=== PATIENT | female | born 1945 | race Native Hawaiian/Other Pacific Islander ===

== ENCOUNTER 2020-07-01 09:05 | Outpatient (CLI) | payer MEDICARE, SELFPAY ==
--- NOTE | ~2020-07-01 | MM_ITS ---
EXAMINATION: MM screening [facility] BI w ninoska HISTORY: Screening TECHNIQUE: Craniocaudal and mediolateral oblique 3-D tomosynthesis images were obtained and synthetic 2-D images were generated. CAD analysis was submitted and interpreted. COMPARISON: Comparison to multiple prior studies sequentially, with oldest reviewed study dated 09/2016. BREAST PARENCHYMAL COMPOSITION: There are scattered areas of fibroglandular density. FINDINGS: There is no evidence of suspicious mass, calcification, or architectural distortion to sugg est malignancy in either breast. There has been no suspicious interval change. IMPRESSION: 1. No mammographic evidence of malignancy. 2. Recommend routine screening mammography in one year. BI-RADS Category 1: Negative Reviewed, dictated and finalized at location A.
== END 2020-07-01 09:06 | disposition home or self-care (01) ==
LOC: ANHIMG 09:08
PROVIDERS: PCP Internal Medicine; Visit Provider Internal Medicine
DX: Z12.31 Encounter for screening mammogram for malignant neoplasm of breast (principal)
CPT/HCPCS: 77063; 77067

== ENCOUNTER → 2020-08-21 10:58 | Outpatient (CLI) | payer MEDICARE, SELFPAY ==
--- NOTE | ~2020-08-21 | XR_ITS ---
EXAMINATION: XR_CERV2-3V_CR EXAM DATE: 08/21/2020 11:46 INDICATION: Cervical pain since 2011, progressing. TECHNIQUE: Cervical spine frontal, lateral, lateral swimmers, and open-mouth odontoid projections. There is no prior study for comparison. FINDINGS: Mild loss of the C4-5 and 5-6 disc spaces. There is 2 mm retrolisthesis C4 on C5. The vert ebral bodies are otherwise aligned. Overall mild to moderate cervical arthropathy. The odontoid proce ss is intact. The lateral masses of C1 line up with C2. Prevertebral soft tissue and pre-dens space are within normal limits. Lung apices are clear. IMPRESSION: Mild to moderate cervical spondylosis. Reviewed, dictated and finalized at location B.
== END ==
PROVIDERS: PCP Internal Medicine; Visit Provider Internal Medicine
DX: M47.812 Spondylosis without myelopathy or radiculopathy, cervical region (principal)
CPT/HCPCS: 72040

== ENCOUNTER → 2020-08-24 01:00 | Outpatient (CLI) | payer MEDICARE, SELFPAY ==
[2020-08-24 19:37] LABS: SARS-CoV-2 RNA PCR Negative
== END ==
PROVIDERS: PCP Internal Medicine; Visit Provider Internal Medicine Gastroenterology
DX: Z01.812 Encounter for preprocedural laboratory examination (principal); Z20.822 Contact with and (suspected) exposure to COVID-19
CPT/HCPCS: C9803; U0003; U0005

== ENCOUNTER 2020-08-28 01:09 | Day surgery (SDC) | payer MEDICARE, SELFPAY ==
[2020-08-16 13:40] VITALS: BMI 26.2
[2020-08-28 09:08] VITALS: BP 149/60; PULSE 66; RESP 18; TEMP 36.4; O2SAT 100
[2020-08-28] MEDS: LACTATED RINGERS 1,000 ML 150 ML IV CONT (09:21)
--- NOTE | 2020-08-28 09:34 | WPDANESEPPF ---
Anes - Initial Pre Proc Eval Procedure: Operation Date: 08/28/20 10:00 Proposed Procedures p Screening Colonoscopy - Valentino Troncoso MD Date/Time: 08/28/20 09:34 Surgeon: Valentino Troncoso MD Pre Op Diagnosis: hx colon polyps Patient Data Age: 75 Gender: F Height: 5 ft 3 in Weight: 65.7 kg Last Vital Signs Temp 97.6 F 08/28/20 09:08 Pulse 66 08/28/20 09:08 Resp 18 08/28/20 09:08 BP 149/60 H 08/28/20 09:08 Pulse Ox 100 08/28/20 09:08 Allergies Allergy/AdvReac Type Severity Reaction Status Date / Time Penicillins Allergy Severe Itching Verified 08/28/20 09:22 Home Medications Medication Instructions Recorded Confirmed Type cetirizine 10 mg tablet 5 mg PO DAILY 12/18/19 08/21/20 History conjugated estrogens 0.625 mg/gram 0.625 mg VAGINAL DAILY 12/18/19 08/28/20 History vaginal cream pravastatin 40 mg tablet 40 mg PO DAILY 12/18/19 08/21/20 History fluticasone propionate 50 1 spray NASAL DAILY #16 g 05/03/20 08/21/20 Rx mcg/actuation nasal spray,suspension hydrocortisone 2.5 % topical cream 1 applic RECTAL DAILY PRN #30 g 05/03/20 08/21/20 Rx with perineal applicator valacyclovir 500 mg tablet 500 mg PO DAILY PRN tablet 06/13/20 08/28/20 History levothyroxine 50 mcg tablet 50 mcg PO DAILY 06/28/20 08/21/20 History recta smooth 1 dose TOPICAL DAILY 08/09/20 08/28/20 History triamcinolone acetonide [Triderm] 1 applic TOPICAL DAILY 08/16/20 08/28/20 History Patient hx anesthesia problems: none Family hx anesthesia problems: none PMFSH Past Medical History Medical History (Updated 08/28/20 @ 09:34 by Jose C Marte MD) Bladder prolapse Reconstructive surgery 2015 HSV-2 (herpes simplex virus 2) infection Hypothyroid Vaginal delivery 10/07/72 Full term female 7lbs 2oz 11/29/74 Full term male 7lbs 4oz 04/07/82 Full term male 7lbs 3oz Surgical History Surgical History History of bladder surgery Family History Family History Father Cerebrovascular accident Social History Social History Smoking status: Never smoker Second hand tobacco smoke exposure: No Alcohol intake: never Substance use: never Substance use type: does not use Living arrangements: alone Gender identity (if verbalized by the patient): Female Sexual Orientation (if Verbalized by the Patient): Straight or Heterosexual Spiritual care concerns: No Anes - Eval Final PreProcedure Day of Procedure 08/28/20 09:34 Patient weight: overweight Heart: regular rate and rhythm Lungs: clear to auscultation Airway: Mallampati scale class II Neurological: alert and oriented Last oral intake: >/= 8 hours ASA classification: II Emergent: no Anesthetic plan: proceed Anesthesia type and monitoring: general GIVS and standard monitoring Informed Consent: The patient's anesthetic plan and its attendant risks and benefits were discussed with the patient/family/POA. Questions were solicited and answers provided to the satisfaction of the patient/family/POA.
--- NOTE | 2020-08-28 09:35 | PM.HPGS ---
History of Present Illness History of Present Illness Consent: Risks, benefits, and alternatives have been discussed and questions answered. Patient agrees to proceed with procedure. Chief complaint: hx colon polyps Narrative: Sloane Rosa is a 75 year old female with last colonoscopy 2016 but previously had colon polyps Review of Systems Constitutional: Constitutional: Denies headache(s) and Denies weakness Eyes: Eyes: Denies blurry vision ENT: Reports Normal hearing present, Denies headache(s) and Denies neck pain Cardiovascular: Cardiovascular: Denies chest pain and Denies dyspnea Respiratory: Respiratory: Denies dyspnea Gastrointestinal: Gastrointestinal: Reports no additional gastrointestinal complaints Genitourinary: Genitourinary: Denies dysuria Musculoskeletal: Musculoskeletal: Denies neck pain Integumentary/Breasts: Skin/Breast: Denies dry skin Neurologic: Reports Normal hearing present, Denies headache(s) and Denies weakness Psychiatric: Psychiatric: Denies anxiety Endocrine: Endocrine: Denies change in body appearance Hematologic/Lymphatic: Hematologic/Lymphatic: Denies easy bleeding Allergic/Immunologic: Allergic/Immunologic: Denies urticaria PMFSH Past Medical History Medical History (Updated 08/28/20 @ 09:36 by Valentino Troncoso MD) Bladder prolapse Reconstructive surgery 2016 Colon polyp HSV-2 (herpes simplex virus 2) infection Hypothyroid Vaginal delivery 10/07/72 Full term female 7lbs 2oz 11/29/74 Full term male 7lbs 4oz 04/07/82 Full term male 7lbs 3oz Surgical History Surgical History History of bladder surgery Family History Family History Father Cerebrovascular accident Social History Social History Smoking status: Never smoker Second hand tobacco smoke exposure: No Alcohol intake: never Substance use: never Substance use type: does not use Living arrangements: alone Gender identity (if verbalized by the patient): Female Sexual Orientation (if Verbalized by the Patient): Straight or Heterosexual Spiritual care concerns: No Meds Home Medications and Allergies Home Medications Medication Instructions Recorded Confirmed Type cetirizine 10 mg tablet 5 mg PO DAILY 12/18/19 08/21/20 History conjugated estrogens 0.625 mg/gram 0.625 mg VAGINAL DAILY 12/18/19 08/28/20 History vaginal cream pravastatin 40 mg tablet 40 mg PO DAILY 12/18/19 08/21/20 History fluticasone propionate 50 1 spray NASAL DAILY #16 g 05/03/20 08/21/20 Rx mcg/actuation nasal spray,suspension hydrocortisone 2.5 % topical cream 1 applic RECTAL DAILY PRN #30 g 05/03/20 08/21/20 Rx with perineal applicator valacyclovir 500 mg tablet 500 mg PO DAILY PRN tablet 06/13/20 08/28/20 History levothyroxine 50 mcg tablet 50 mcg PO DAILY 06/28/20 08/21/20 History recta smooth 1 dose TOPICAL DAILY 08/09/20 08/28/20 History triamcinolone acetonide [Triderm] 1 applic TOPICAL DAILY 08/16/20 08/28/20 History Allergies Allergy/AdvReac Type Severity Reaction Status Date / Time Penicillins Allergy Severe Itching Verified 08/28/20 09:22 Vital Signs Vital Signs - 24 hr 08/28/20 09:08 Temperature 97.6 F Pulse Rate 66 Respiratory Rate 18 Blood Pressure 149/60 H Pulse Oximetry 100 Exam Const: General: comfortable and no acute distress HENMT: General nose exam: Normal nares present Eyes: General: appearance normal, both eyes and all related structures Neck: Neck: no JVD Resp: Auscultation: clear to auscultation bilaterally Cardio: Rate: regular rate Rhythm: regular rhythm GI: Inspection: non-distended GI Palp: Yes Soft to palpation Skin: General skin exam: normal color Neuro: General: gait normal Speech: normal speech Extrem: General: normal to inspection Psych:
[2020-08-28 09:59] VITALS: BP 99/52; PULSE 60; RESP 21; O2SAT 99
[2020-08-28 10:09] VITALS: BP 153/74; PULSE 66; RESP 17; O2SAT 100
[2020-08-28 10:19] VITALS: BP 136/65; PULSE 59; RESP 23; O2SAT 100
== END 2020-08-28 10:36 | disposition home or self-care (01) ==
PROVIDERS: PCP Internal Medicine; Visit Provider Internal Medicine Gastroenterology
PROC: 0DJD8ZZ Inspection of Lower Intestinal Tract, Via Natural or Artificial Opening Endoscopic (ICD-10-PCS; CPT 45378; principal; 2020-08-28 10:00)
DX: Z12.11 Encounter for screening for malignant neoplasm of colon (principal); K63.5 Polyp of colon; K63.89 Other specified diseases of intestine; K57.30 Diverticulosis of large intestine without perforation or abscess without bleeding; K64.8 Other hemorrhoids; E03.9 Hypothyroidism, unspecified; B00.9 Herpesviral infection, unspecified
CPT/HCPCS: 45380; 88305; C9803; J2001; J2704; J7120; U0003; U0005

== ENCOUNTER 2020-08-30 09:26 | Outpatient (CLI) | payer MEDICARE, SELFPAY ==
--- NOTE | ~2020-08-30 | US_ITS ---
EXAMINATION: US carotid duplex BI DATE: 08/30/2020 09:59 INDICATION: Vertebrobasilar artery syndrome. TECHNIQUE: Grayscale, color Doppler, and pulsed Doppler images of the cervical carotid arteries were obtained. The degree of vessel stenosis is placed in one of the following categories: normal, <50%, 5 0-69%, >=70% but less than near-occlusion, near-occlusion, or total occlusion. Note that percent sten osis relative to normal distal artery lumen diameter is indirectly measured from velocity measurement s as described by Jewel, et al. Radiology 2003; 229:340-346. COMPARISON: None. FINDINGS: RIGHT: The right common carotid artery (CCA) peak systolic velocity (PSV) is 108 cm/s. The right internal ca rotid artery (ICA) PSV is 132 cm/s. The right ICA end-diastolic velocity (EDV) is 40 cm/s. The right ICA/CCA PSV ratio is 1.2. Grayscale and color Doppler images yield an estimate of <50% diameter reduc tion from plaque in the ICA. There is antegrade flow in the right vertebral artery. LEFT: The left CCA PSV is 122 cm/s. The left ICA PSV is 122 cm/s. The left ICA EDV is 22 cm/s. The left ICA /CCA PSV ratio is 1.0. Grayscale and color Doppler images yield an estimate of <50% diameter reductio n from plaque in the ICA. There is antegrade flow in the left vertebral artery. IMPRESSION: 1. <50% stenosis in the right internal carotid artery. 2. <50% stenosis in the left internal carotid artery. Reviewed, dictated and finalized at location A.
== END 2020-08-30 09:27 | disposition home or self-care (01) ==
PROVIDERS: PCP Internal Medicine; Visit Provider Internal Medicine
DX: G45.0 Vertebro-basilar artery syndrome (principal); I65.23 Occlusion and stenosis of bilateral carotid arteries
CPT/HCPCS: 93880

== ENCOUNTER 2021-01-22 15:29 | Outpatient (CLI) | payer MEDICARE, SELFPAY ==
--- NOTE | ~2021-01-22 | CT_ITS ---
EXAMINATION: CTA brain carotid EXAM DATE: 01/22/2021 16:16 INDICATION: H54.7 - Unspecified visual loss TECHNIQUE: Noncontrast head CT. Spiral CTA of the carotid arteries was performed with intravenous i njection 100 cc of Omnipaque 350. Axial, coronal, sagittal reformatted images reviewed. Additional r eformatted images created on dedicated 3-D workstation. NASCET comparable standard used to assess th e degree of arterial stenosis. Spiral CT angiogram cerebral arteries performed with the same intrave nous injection of contrast. Source images of the brain CTA transferred to dedicated workstation for 3 -D rotational image creation. Coronal, sagittal maximum intensity pixel images also reviewed. The d ose-length product (DLP) for this examination was 1518.42 mGy-cm. The exposure was tailored accordi ng to patient size, and iterative reconstruction (ASIR) was used as additional dose reduction techniq ue. Correlation is made to carotid ultrasound from 08/30/2020. FINDINGS: There is moderate right carotid bulb arteriosclerosis with 50% stenosis. There is minimal l eft carotid bulb arterial sclerosis. There are posterior communicating artery dominant posterior cer ebral arteries. The vertebral arteries are codominant. There is no carotid or vertebral basilar arter ial dissection or fibromuscular dysplasia. There are no cerebral artery aneurysms. There is symmetric cerebral artery arborization. The sagittal, transverse and sigmoid sinuses enhance normally, no veno us sinus thrombosis. Internal cerebral veins also enhance normally. There is no acute intraparenchymal hemorrhage. No evidence of intraparenchymal brain mass lesion. N o evidence of acute infarction. There is no mass effect or midline shift. There is no obstructive hyd rocephalus suspected. There are no extra-axial collections. Incidental Findings: Advanced upper cervical facet arthropathy. IMPRESSION: 1. No acute carotid or intracranial findings. 2. Right carotid bulb 50% stenosis, 0% on the left. Reviewed, dictated and finalized at location A.
== END 2021-01-22 15:30 | disposition home or self-care (01) ==
LOC: ANHIMG 15:33
PROVIDERS: PCP Internal Medicine; Visit Provider Nurse Practitioner
DX: H54.7 Unspecified visual loss (principal); I65.21 Occlusion and stenosis of right carotid artery
CPT/HCPCS: 70496; 70498; Q9967

== ENCOUNTER → 2021-05-10 00:06 | Outpatient (CLI) | payer MEDICARE, SELFPAY ==
[2021-05-10 13:57] LABS: Influenza A QL RT-PCR Negative (Negative); Influenza B QL RT-PCR Negative (Negative); SARS-CoV-2 RNA PCR Negative
== END ==
PROVIDERS: PCP Internal Medicine; Visit Provider Internal Medicine
DX: R68.89 Other general symptoms and signs (principal); Z20.822 Contact with and (suspected) exposure to COVID-19
CPT/HCPCS: 87502; C9803; U0003; U0005

== ENCOUNTER → 2021-05-16 15:13 | Outpatient (CLI) | payer MEDICARE, SELFPAY ==
--- NOTE | ~2021-05-16 | XR_ITS ---
XR shoulder RT min 2V 05/16/2021 15:41 INDICATION: Right shoulder pain PROCEDURE: 4 views right shoulder COMPARISON: No prior studies FINDINGS: Fracture, dislocation or subluxation is not identified. There is mild polyarticular osteoar thritis. The soft tissues appear within normal limits. No foreign bodies are identified. IMPRESSION: 1: NO ACUTE BONE OR JOINT ABNORMALITY IDENTIFIED. Reviewed, dictated and finalized at location B. RINTENDENT PIPELINES
== END ==
PROVIDERS: Visit Provider Internal Medicine
DX: M25.519 Pain in unspecified shoulder (principal)
CPT/HCPCS: 73030

== ENCOUNTER 2021-05-28 14:03 | Outpatient (CLI) | payer MEDICARE, SELFPAY ==
--- NOTE | ~2021-05-28 | US_ITS ---
EXAMINATION: US arterial ankle brachial ind DATE: 05/28/2021 14:34 INDICATION: Cold and discolored feet. TECHNIQUE: Segmental pressures and plethysmographic and Doppler waveforms of the brachial and lower e xtremity arteries were obtained. COMPARISON: None. FINDINGS: Right and left brachial artery pressures of 136 mm Hg and 129 mm Hg, respectively, are concordant (no rmal difference <= 30 mmHg). The right ankle-brachial index (EVERT) is 1.13 (normal >= 0.9-1.0). The right great toe-brachial index (TBI) is 0.60 (normal >= 0.65). Arterial Doppler waveforms are biphasic with brisk systolic upstrokes at both the right posterior tibial and dorsalis pedis arteries. The left EVERT is 1.02. The left TBI is 0.60. Arterial Doppler waveforms are biphasic with brisk systol ic upstrokes at both the left posterior tibial and dorsalis pedis arteries. IMPRESSION: 1. Mild arterial occlusive disease to the bilateral lower limbs with mildly decreased bilateral TBIs. Reviewed, dictated and finalized at location A. ING SUPPORT WORKER IMPRESSION: 1. Mild arterial occlusive disease to the bilateral lower limbs with mildly dec reased bilateral TBIs.
== END 2021-05-28 14:04 | disposition home or self-care (01) ==
LOC: ANHIMG 14:07
PROVIDERS: Visit Provider Nurse Practitioner
DX: R20.9 Unspecified disturbances of skin sensation (principal); I73.00 Raynaud's syndrome without gangrene; I70.203 Unspecified atherosclerosis of native arteries of extremities, bilateral legs
CPT/HCPCS: 93922

== ENCOUNTER 2021-07-03 09:22 | Outpatient (CLI) | payer MEDICARE, SELFPAY ==
--- NOTE | ~2021-07-03 | MM_ITS ---
EXAMINATION: MM screening [facility] BI w ninoska HISTORY: Screening TECHNIQUE: Craniocaudal and mediolateral oblique 3-D tomosynthesis images were obtained and synthetic 2-D images were generated. CAD analysis was submitted and interpreted. COMPARISON: Comparison to multiple prior studies sequentially, with oldest reviewed study dated 09/2016. BREAST PARENCHYMAL COMPOSITION: Breast composed of scattered areas of fibroglandular density FINDINGS: There are developing calcifications in the upper outer quadrant of the right breast. The le ft breast is stable without evidence for malignancy. IMPRESSION: 1. Developing right breast calcifications in the upper outer quadrant. 2. Magnification views are recommended. BI-RADS Category 0: Incomplete: Needs additional imaging evaluation. Reviewed, dictated and finalized at location A.
== END 2021-07-03 09:23 | disposition home or self-care (01) ==
LOC: ANHIMG 09:24
PROVIDERS: PCP Internal Medicine; Visit Provider Nurse Practitioner
DX: Z12.31 Encounter for screening mammogram for malignant neoplasm of breast (principal); R92.8 Other abnormal and inconclusive findings on diagnostic imaging of breast
CPT/HCPCS: 77063; 77067

== ENCOUNTER → 2021-07-14 09:14 | Outpatient (CLI) | payer MEDICARE, SELFPAY ==
--- NOTE | ~2021-07-14 | MM_ITS ---
MM diagnostic mammo unilat RT 07/14/2021 09:52 Indication: Follow-up right breast calcifications Procedure: Digital diagnostic right mammogram Comparison: Comparison to multiple prior studies sequentially, with oldest reviewed study dated 06/04. Findings: There are scattered punctate calcifications in the upper outer quadrant of the right breast which are likely benign. There are no suspicious masses or architectural distortion. Impression: 1: Probable benign right breast calcifications. BI-RADS CATEGORY 3-PROBABLY BENIGN FINDING RECOMMENDATION: Six-month follow-up diagnostic right mammogram recommended. Reviewed, dictated and finalized at location A. Impression: 1: Probable benign right breast calcifications. BI-RADS CATEGORY 3-PROBABLY BENIGN FINDING RECOMMENDATION: Six-month follow-up diagnostic right mammogram recommended.
== END ==
PROVIDERS: PCP Nurse Practitioner; Visit Provider Nurse Practitioner
DX: R92.8 Other abnormal and inconclusive findings on diagnostic imaging of breast (principal)
CPT/HCPCS: 77065

== ENCOUNTER → 2021-07-30 10:13 | Outpatient (CLI) | payer MEDICARE, SELFPAY ==
--- NOTE | ~2021-07-30 | DEXA_ITS ---
Bone Density Report Name: KURTIS LUND Age: 76 Sex: Female Ethnicity: Date of : 1945 Indication: postmenopausal; screening for osteoporosis; height loss; Referring Provider: Salma Camacho Study: Bone densitometry was performed. Exam Date: July 30, 2021 Accession number: [id number] Bone Density: Region BMD T-score Z-score Classification AP Spine (L1-L4) 1.059 0.1 2.5 Normal Femoral Neck (Left) 0.799 -0.5 1.4 Normal Total Hip (Left) 0.936 0.0 1.6 Normal Femoral Neck (Right) 0.826 -0.2 1.6 Normal Total Hip (Right) 0.887 -0.5 1.2 Normal Total Hip Mean 0.912 -0.3 1.4 Normal World Health Organization criteria for BMD impression classify patients as: Normal (T-score at or above -1.0), Osteopenia (T-score between -1.0 and -2.5), or Osteoporosis (T-score at or below -2.5). 10-year Fracture Risk: FRAX not reported because: All T-scores for Spine Total, Hip Total, Femoral Neck at or above -1.0 Previous Exams: Region Exam Age BMD T-score BMD Change BMD Change Date g/cm2 vs Baseline vs Previous AP Spine(L1-L4) 07/30/2021 76 1.059 0.1 -0.057* -0.057* 12/14/2016 71 1.115 0.6 Total Hip(Left) 07/30/2021 76 0.936 0.0 -0.003 -0.003 12/14/2016 71 0.939 0.0 Total Hip(Right) 07/30/2021 76 0.887 -0.5 -0.003 -0.003 12/14/2016 71 0.890 -0.4 *Denotes significance at 95% confidence level, LSC for AP Spine = 0.022 g/cm2, LSC for Total Hip = 0.027 g/cm2 Clinical Information Provided by Patient: Has used the following medications: Vitamin D, MTV, Levothyroxine Patient maximum height was 63.0 Menopause Age: 42 Drinks caffeinated beverages Onset of menses at age 14 Number of children 3 Impression: The patient has normal bone mass. The BMD for the AP Spine(L1-L4) decreased, changing by -0.057 since the last DXA exam. Discussion: BONE DENSITY IS ABOVE THE MINIMUM DESIRABLE LEVEL AT ALL SKELETAL SITES TESTED. This patient?s bone mineral density is above the minimum desirable level (T-score -1.0 or better) at all sites measured. The patient should follow a healthful lifestyle (good nutrition with adequate calcium and vitamin D, and appropriate weight-bearing exercise). Follow-Up: Consider repeating this study in 3 to 4 years to reassess this patient's status, or sooner if there is some new clinical indication. Reported by: KELLIE on 07/30/2021 10:49:00 AM.
== END ==
PROVIDERS: PCP Internal Medicine; Visit Provider Nurse Practitioner
DX: Z78.0 Asymptomatic menopausal state (principal)
CPT/HCPCS: 77080

== ENCOUNTER 2022-01-23 10:35 | Outpatient (CLI) | payer MEDICARE, SELFPAY ==
--- NOTE | 2022-01-27 16:08 | WPDHOLTEREM ---
Holter/Event Monitor Holter/Event Monitor Date of procedure: 01/23/22 Holter/Event Procedure: 48 Hr Holter Monitor Indications: Syncope Conclusion: 1. 48 hour holter monitor on 01/23/22. 2. Underlying rhythm is sinus rhythm. HR range 38-102 bpm; average HR 61 bpm. HR at 38 bpm was at 03:50. 3. There are 196 premature supraventricular complexes, 5 supraventricular couplets, and 3 supraventricular bigeminy. No supraventricular tachycardia. 4. There are 8 premature ventricular complexes. No ventricular tachycardia. 5. No sinoatrial or atrioventricular blocks. The longest pause is 2.2 second pause at 02:10 due to a non-conducted PAC. There are intermittent episodes of non-conducted PAC's at 16:04, 16:29, 16:49, 23:20, 02:10, 03:50, 05:32 6. Patient reports symptoms of dizziness and neck pain which demonstrate sinus rhythm, HR range 60-81 bpm.
== END 2022-01-23 10:36 | disposition home or self-care (01) ==
PROVIDERS: PCP Internal Medicine; Visit Provider Nurse Practitioner
DX: R55 Syncope and collapse (principal)
CPT/HCPCS: 93225; 93226

== ENCOUNTER → 2022-01-27 08:48 | Outpatient (CLI) | payer MEDICARE, SELFPAY ==
--- NOTE | ~2022-01-27 | MMUS_ITS ---
EXAMINATION: MM diagnostic rneetta RT w ninoska, US breast RT limited HISTORY: Six-month follow-up of probable benign right breast calcifications TECHNIQUE: ML, MLO and craniocaudal 3-D tomosynthesis images of the right breast were performed and s ynthetic 2-D images were generated. Rotated lateral craniocaudal view. Magnification views in ML, MLO and CC projections. CAD analysis was submitted and interpreted. High resolution upper outer and lowe r-outer quadrant right breast ultrasound was performed. COMPARISON: 07/14/2021 diagnostic right mammogram 07/03/2021, 07/01/2020, 06/23/2018 bilateral screening mammogram examinations BREAST PARENCHYMAL COMPOSITION: There are scattered areas of fibroglandular density. FINDINGS: MAMMOGRAPHIC FINDINGS: There are occasional benign calcifications. No suspicious mass, architectural distortion, malignant c alcification, skin thickening or retraction or significant new or developing density of the right morris ast is detected. ULTRASOUND: Real-time imaging of upper outer and lower-outer quadrants right breast reveal no suspicious mass or shadowing, cyst or other significant sonographic finding. IMPRESSION: 1. Benign right calcifications. No mammographic evidence of malignancy 2. Routine annual mammographic screening is recommended BI-RADS Category 2: Benign finding(s). Reviewed, dictated and finalized at location A. N RESOURCE ADVISER IMPRESSION: 1. Benign right calcifications. No mammographic evidence of malignancy 2. Routine annual mammographic screening is recommended BI-RADS Category 2: Benign finding(s).
== END ==
PROVIDERS: PCP Nurse Practitioner; Visit Provider Internal Medicine
DX: R92.1 Mammographic calcification found on diagnostic imaging of breast (principal)
CPT/HCPCS: 76642; 77061; 77065; G0279

== ENCOUNTER → 2022-11-24 14:50 | Outpatient (CLI) | payer MEDICARE, SELFPAY ==
--- NOTE | ~2022-11-24 | XR_ITS ---
EXAMINATION: XR abdomen/kub 1V INDICATION: Unspecified abdominal pain TECHNIQUE: Supine views of the abdomen were obtained on 2 radiographs. COMPARISON: None FINDINGS: The bowel gas pattern is normal. A moderate volume of colonic stool is present. A left pelv ic calcification likely reflects a uterine fibroid. The visualized lung bases are clear. No urolithia sis is identified. IMPRESSION: 1. Constipation Reviewed, dictated and finalized at location B. IMPRESSION: 1. Constipation
--- NOTE | ~2022-11-24 | XR_ITS ---
EXAMINATION: XR foot RT min 3V DATE: 11/24/2022 16:03 INDICATION: Right foot pain TECHNIQUE: Dorsoplantar, lateral, and 2 oblique views of the right foot were obtained. COMPARISON: None. FINDINGS: Bone alignment is normal. There is no fracture. There is mild to moderate osteoarthritis of multiple interphalangeal joints. Mild osteoarthritis is noted at the first metatarsophalangeal joint . The soft tissues are unremarkable. A plantar calcaneal enthesophyte is noted. IMPRESSION: 1. No acute osseous abnormality. Reviewed, dictated and finalized at location B.
== END ==
PROVIDERS: PCP Family Medicine; Visit Provider Family Medicine
DX: M79.676 Pain in unspecified toe(s) (principal); R10.9 Unspecified abdominal pain; K59.00 Constipation, unspecified
CPT/HCPCS: 73630; 74018

== ENCOUNTER → 2023-05-12 13:46 | Outpatient (CLI) | payer MEDICARE, SELFPAY ==
--- NOTE | ~2023-05-12 | XR_ITS ---
EXAMINATION: XR_CERV2-3V_CR DATE: 05/12/2023 14:06 INDICATION: Neck and bilateral shoulder pain. TECHNIQUE: 3 views of cervical spine were obtained. COMPARISON: Cervical spine radiograph 08/21/2020 FINDINGS: There is 4 degrees dextrocurvature of cervical spine. Vertebral body heights are normal. Th ere is mildly decreased disc height at C3-C4, C4-C5, and C5-C6. There is multilevel mild to moderate facet joint osteoarthritis. There is mild central canal stenosis at C4-C5. No prevertebral soft tissu e swelling. IMPRESSION: 1. Mild cervical spondylosis. Reviewed, dictated and finalized at location E. R ROLLER
--- NOTE | ~2023-05-12 | XR_ITS ---
EXAMINATION: XR shoulder LT min 2V, XR shoulder RT min 2V DATE: 05/12/2023 14:06 INDICATION: Bilateral shoulder pain and limited range of motion TECHNIQUE: 1. AP internally and externally rotated, AP oblique externally rotated and transscapular Y views of t he left shoulder were obtained. 2. AP internally and externally rotated, AP oblique externally rotated and transscapular Y views of t he left shoulder were obtained. COMPARISON: None FINDINGS: Normal alignment at both shoulders. No fracture.Mild osteoarthritis at the bilateral glenohumeral nel ints with mild nonuniform joint space narrowing at the cephalad aspect right glenohumeral joint and w ith small marginal osteophytes at the posterior left glenoid and at the inferomedial aspect of the bi lateral humeral heads. Mild acromioclavicular osteoarthritis. The left acromioclavicular joint is nor mal. Soft tissues are unremarkable. Visualized portion of the bilateral lungs are clear. 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 Reviewed, dictated and finalized at location A. 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
== END ==
PROVIDERS: PCP Family Medicine; Visit Provider Family Medicine
DX: M43.02 Spondylolysis, cervical region (principal); M19.012 Primary osteoarthritis, left shoulder; M19.011 Primary osteoarthritis, right shoulder
CPT/HCPCS: 72040; 73030

== ENCOUNTER 2023-07-28 11:55 | Outpatient (CLI) | payer MEDICARE, SELFPAY ==
--- NOTE | ~2023-07-28 | MM_ITS ---
EXAMINATION: MM screening renetta BI w ninoska HISTORY: Screening mammogram TECHNIQUE: Craniocaudal and mediolateral oblique 3-D tomosynthesis images were obtained and synthetic 2-D images were generated. CAD analysis was submitted and interpreted. COMPARISON: 01/27/2022 diagnostic the right mammogram and Limited right breast ultrasound For the slice diagnostic right mammogram 07/03/2021 bilateral screening mammogram BREAST PARENCHYMAL COMPOSITION: There are scattered areas of fibroglandular density. FINDINGS: Stable mild fibroglandular asymmetry. Occasional benign calcifications. There is no evidenc e of suspicious mass, calcification, or architectural distortion to suggest malignancy in either [address]. There has been no suspicious interval change. IMPRESSION: 1. No mammographic evidence of malignancy. 2. Recommend routine screening mammography in one year. BI-RADS Category 2: Benign finding(s). Reviewed, dictated and finalized at location B.
== END 2023-07-28 11:56 ==
LOC: MICIMG 11:56
PROVIDERS: PCP Family Medicine; Visit Provider Family Medicine
DX: Z12.31 Encounter for screening mammogram for malignant neoplasm of breast (principal)
CPT/HCPCS: 77063; 77067

== ENCOUNTER 2023-08-19 12:43 | Outpatient (CLI) | payer MEDICARE, SELFPAY ==
--- NOTE | ~2023-08-19 | MR_ITS ---
MRI of the cervical spine Clinical History: Cervicalgia Technique: Axial T2-weighted and gradient images, and sagittal T1-weighted, T2-weighted, and STIR les ges were acquired. Findings: There is no fracture or subluxation of cervical spine. Vertebral bodies maintain normal hei ght and alignment. No bone marrow signal abnormality seen. At C2-C3, there is minimal facet arthropathy without disc bulge or herniation. No spinal canal stenos is, cord compression, or neural foraminal narrowing. At C3-C4, there is bilateral facet arthropathy with probable mild bilateral neural foraminal narrowin g. No disc bulge or herniation. No canal stenosis or cord compression. At C4-C5, there is minimal disc osteophyte complex, without canal stenosis or cord compression. There is probable mild bilateral neural foraminal narrowing with mild bilateral facet arthropathy. At C5-C6, there is disc osteophyte complex, mild, without justo canal stenosis or cord compression. B ilateral neural foramina are preserved despite facet arthropathy. At C6-C7, there is no significant disc bulge or herniation. There is mild bilateral facet arthropathy . No central canal stenosis, cord compression, or neural foraminal narrowing. No abnormal signal seen in the spinal cord. Paravertebral soft tissues are unremarkable. Impression: Mild degenerative spondylosis overall, as detailed above. Reviewed, dictated and finalized at [facility]. Impression: Mild degenerative spondylosis overall, as detailed above.
== END 2023-08-19 12:44 ==
LOC: MICIMG 12:44
PROVIDERS: PCP Family Medicine; Visit Provider Family Medicine
DX: M54.2 Cervicalgia (principal); M43.02 Spondylolysis, cervical region
CPT/HCPCS: 72141

== ENCOUNTER 2024-07-31 12:24 | Outpatient (CLI) | payer MEDICARE, SELFPAY ==
--- NOTE | ~2024-07-31 | MM_ITS ---
EXAMINATION: MM screening [facility] BI w ninoska HISTORY: Screening mammogram TECHNIQUE: Craniocaudal and mediolateral oblique 3-D tomosynthesis images were obtained and synthetic 2-D images were generated. CAD analysis was submitted and interpreted. COMPARISON: 07/28/2023, 01/27/2022, 07/03/2021 BREAST PARENCHYMAL COMPOSITION:Not Dense. There are scattered areas of fibroglandular density. FINDINGS: No suspicious mass, calcification, or architectural distortion are identified in either morris ast to suggest malignancy. There has been no suspicious interval change. IMPRESSION: No mammographic evidence of malignancy. Recommend routine screening mammography in one year. BI-RADS Category 1: Negative Reviewed, dictated and finalized at location .
== END 2024-07-31 12:25 | disposition home or self-care (01) ==
LOC: MICIMG 12:25
PROVIDERS: PCP Family Medicine; Visit Provider Family Medicine
DX: Z12.31 Encounter for screening mammogram for malignant neoplasm of breast (principal)
CPT/HCPCS: 77063; 77067

== ENCOUNTER 2024-08-07 13:38 | Outpatient (CLI) | payer MEDICARE, SELFPAY ==
--- NOTE | ~2024-08-07 | DEXA_ITS ---
Bone Density Report Name: KURTIS LUND Age: 79 Sex: Female Ethnicity: Date of : 1945 Indication: postmenopausal; screening for osteoporosis; height loss; Referring Provider: DONAL ZIEGLER Study: Bone densitometry was performed. Exam Date: August 07, 2024 Accession number: [id number] Bone Density: Region BMD T-score Z-score Classification AP Spine(L1-L4) 1.129 0.7 3.3 Normal Femoral Neck (Left) 0.772 -0.7 1.3 Normal Total Hip (Left) 0.901 -0.3 1.5 Normal Femoral Neck (Right) 0.742 -1.0 1.0 Normal Total Hip (Right) 0.872 -0.6 1.2 Normal Total Hip Mean 0.887 -0.5 1.4 Normal World Health Organization criteria for BMD impression classify patients as: Normal (T-score at or above -1.0), Osteopenia (T-score between -1.0 and -2.5), or Osteoporosis (T-score at or below -2.5). 10-year Fracture Risk: FRAX not reported because: All T-scores for Spine Total, Hip Total, Femoral Neck at or above -1.0 Previous Exams: -- Region Exam Age BMD T-score BMD Change BMD Change Date g/cm2 vs Baseline vs Previous -- AP Spine (L1-L4) 08/07/2024 79 1.129 0.7 1.2% 6.6%* 07/30/2021 76 1.059 0.1 -5.1%* -5.1%* 12/14/2016 71 1.115 0.6 Total Hip(Left) 08/07/2024 79 0.901 -0.3 -4.1%* -3.7%* 07/30/2021 76 0.936 0.0 -0.4% -0.4% 12/14/2016 71 0.939 0.0 Total Hip(Right) 08/07/2024 79 0.872 -0.6 -2.1% -1.7% 07/30/2021 76 0.887 -0.5 -0.4% -0.4% 12/14/2016 71 0.890 -0.4 -- *Denotes significance at 95% confidence level, LSC for AP Spine = 0.022 g/cm2, LSC for Total Hip = 0.027 g/cm2 Clinical Information Provided by Patient: Has used the following medications: Vitamin D Patient maximum height was 63.0 Menopause Age: 42 Drinks caffeinated beverages Onset of menses at age 14 Number of children 3 Impression: The patient has normal bone mass. The BMD for the Total Hip(Left) decreased, changing by -3.7% since the last DXA exam. Discussion: BONE DENSITY IS ABOVE THE MINIMUM DESIRABLE LEVEL AT ALL SKELETAL SITES TESTED. This patient’s bone mineral density is above the minimum desirable level (T-score -1.0 or better) at all sites measured. The patient should follow a healthful lifestyle (good nutrition with adequate calcium and vitamin D, and appropriate weight-bearing exercise). Follow-Up: Consider repeating this study in 3 to 4 years to reassess this patient's status, or sooner if there is some new clinical indication. Reported by: KELLIE on 08/09/2024 8:58:00 AM. Reviewed, dictated and finalized at location A.
== END 2024-08-07 13:39 | disposition home or self-care (01) ==
LOC: MICIMG 13:39
PROVIDERS: PCP Family Medicine; Visit Provider Family Medicine
DX: Z78.0 Asymptomatic menopausal state (principal)
CPT/HCPCS: 77080

== ENCOUNTER 2024-11-17 11:19 | Outpatient (CLI) | payer MEDICARE, SELFPAY ==
--- OUTSIDE RECORDS SUMMARY | 2024-11-17 11:24 | XMS_ITS | Encounter Summary ---
Author Organization [facility] Address 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
--- OUTSIDE RECORDS SUMMARY | 2024-11-17 11:24 | XMS_ITS | Encounter Summary ---
Author Organization [facility] Address [address] [place] [address] Care Team Providers Care Unit Receptionist Name Role Phone Nury Alfredo MD Primary Care Provider [phone] Encounter Details Date Type Department Care Team (Latest Contact Info) Description 12/06/2004 Outpatient Historical [facility] [place] Steen, Mike Grewal MD [address] [facility] [address] [place] [address] SCREENING MAMM-MAILG NEOPL NEC (Primary Dx) Social History Tobacco Use Types Packs/Day Years Used Date Smoking Tobacco: Never Assessed Comments Unknown Sex and Gender Information Value Date Recorded Sex Assigned at Not on file 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
--- OUTSIDE RECORDS SUMMARY | 2024-11-17 11:24 | XMS_ITS | Encounter Summary ---
Author Organization [facility] Address [address] [place] [address] Care Team Providers Care Director Of Content Marketing Name Role Phone Nury Alfredo MD Primary Care Provider [phone] Encounter Details Date Type Department Care Team (Late st Contact Info) Description 02/04/2007 Outpatient Historical [facility] Albert Burks MD [address] [facility] [address] [place] [address] Special Screening for Malignant Neoplasms, Colon (Primary Dx) Social History Tobacco Use Types Packs/Day Years Used Date Smoking Tobacco: Never Assessed Comments Unknown Sex and Gender Information Value Date Recorded Sex Assigned at Not on file 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
--- OUTSIDE RECORDS SUMMARY | 2024-11-17 11:24 | XMS_ITS | Encounter Summary ---
Author Organization [facility] Address 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
--- OUTSIDE RECORDS SUMMARY | 2024-11-17 11:24 | XMS_ITS | Encounter Summary ---
Author Organization [facility] Address [address] [place] [address] Care Team Providers Care Commission For The Blind Director Name Role Phone Nury Alfredo MD Primary Care Provider [phone] Encounter Details Date Type Department Care Team (Late st Contact Info) Description 12/16/2006 Outpatient Historical [facility] [address] [place] [address] Nury Alfredo MD [address] [place] [address] [place] [address] Social History Tobacco Use Types Packs/Day Years Used Date Smoking Tobacco: Never Assessed Comments Unknown Sex and Gender Information Value Date Recorded Sex Assigned at Not on file 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
--- OUTSIDE RECORDS SUMMARY | 2024-11-17 11:24 | XMS_ITS | Encounter Summary ---
Author Organization [facility] Address [address] [place] [address] Care Team Providers Care Banking Services Clerk Name Role Phone Nury Alfredo MD Primary Care Provider [phone] Encounter Details Date Type Department Care Team (Late st Contact Info) Description 12/15/2006 Outpatient Historical [facility] PATIENT SERVICES MANAGER - Medical [facility] [address] [facility] [address] [place] [address] Mike Steen MD [address] [place] [address] Social History Tobacco Use Types Packs/Day Years Used Date Smoking Tobacco: Never Assessed Comments Unknown Sex and Gender Information Value Date Recorded Sex Assigned at Not on file Legal Sex Female 2:36 AM BENCH HAND Gender Identity Not on file Sexual Orientation Not on file documented as of this encounter Plan of Treatment Not on file documented as of this encounter Visit Diagnoses Not on filedocumented in this encounter Care Teams Banking Services Clerk Relationship Specialty Start Date End Date Nury Alfredo MD [address] [facility] [address] [place] [address] PCP - General 08/26/00 07/26/17 documented as of this encounter
--- OUTSIDE RECORDS SUMMARY | 2024-11-17 11:24 | XMS_ITS | Encounter Summary ---
Author Organization [facility] Address [address] [place] [address] Care Team Providers Care Real Estate Director Name Role Phone Nury Alfredo MD Primary Care Provider [phone] Encounter Details Date Type Department Care Team (Latest Contact Info) Description 12/18/2006 Outpatient Historical [facility] Nury Cabello, [address] [facility] [address] [place] [address] Other Abnormal Clinical Finding (Primary Dx) Social History Tobacco Use Types Packs/Day Years Used Date Smoking Tobacco: Never Assessed Comments Unknown Sex and Gender Information Value Date Recorded Sex Assigned at Not on file 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 Gender Identity Not on file Sexual Orientation Not on file documented as of this encounter Plan of Treatment Not on file documented as of this encounter Procedures Procedure Name Priority Date/Time Associated Diagnosis Comments CBC WITH DIFFERENTIAL Routine 12/18/2006 7:56 AM CDT CBC WITH DIFFERENTIAL Routine 12/18/2006 7:56 AM CDT LIPID PANEL Routine 12/18/2006 7:56 AM CDT COMPREHENSIVE METABOLIC PANEL Routine 12/18/2006 7:56 AM CDT documented in this encounter Results * CBC WITH DIFFERENTIAL (12/18/2006 7:56 AM CDT) NEUTROPHILS 50 45 - 70 % INTERFAC E SYSTEM LYMPHOCYTES 38 16 - 45 % INTERFAC E SYSTEM MONOCYTES 8 3 - 13 % INTERFACE SYSTEM EOSINOPHILS 4 0 - 7 % INTERFAC E SYSTEM BASOPHILS 1 0 - 2 % INTERFACE SYSTEM NEUTROPHIL ABSOLUTE 2.18 1.90 - 7.00 K/uL INTERFACE SYSTEM LYMPHOCYTE ABSOLUTE 1.66 0.70 - 4.50 K/uL INTERFACE SYSTEM MONOCYTE ABSOLUTE 0.34 0.10 - 1.30 K/uL INTERFACE SYSTEM EOSINOPHIL ABSOLUTE 0.19 0.00 - 0.70 K/uL INTERFACE SYSTEM BASOPHILS ABSOLUTE 0.04 0.00 - 0.20 K/uL INTERFACE SYSTEM 12/18/2006 7:56 AM CDT Nury Alfredo MD HEMATOLOGY ORDERABLES Edited INTERFACE SYSTEM Refer to clinic/hospital department * (ABNORMAL) CBC WITH DIFFERENTIAL (12/18/2006 7:56 AM CDT) WBC 4.4 4.0 - 9.8 K/uL INTERFACE SYSTEM RBC 4.77 3.90 - 4.90 M/uL INTERFACE SYSTEM HEMOGLOBIN 14.8 11.8 - 14.8 g/dL INTERFACE SYSTEM HEMATOCRIT 44.7(H) 35.5 - 44.0 % INTERFACE SYSTEM MCV 93.7 82.0 - 99.0 fL INTERFACE SYSTEM MCH 31.0 27.2 - 32.6 pg INTERFACE SYSTEM MCHC 33.1 31.5 - 35.5 % INTERFACE SYSTEM RDW 13.3 11.5 - 14.5 % INTERFACE SYSTEM RDW-STDEV 45.7 37.1 - 48.7 fL INTERFACE SYSTEM PLATELETS 345 140 - 350 K/uL INTERFACE SYSTEM MPV 9.8 9.3 - 12.4 fL INTERFACE SYSTEM 12/18/2006 7:56 AM CDT Nury Alfredo MD HEMATOLOGY ORDERABLES Edited INTERFACE SYSTEM Refer to clinic/hospital department * (ABNORMAL) LIPID PANEL (12/18/2006 7:56 AM CDT) CHOLESTEROL 244(H) 100 - 199 mg/dL INTERFACE SYSTEM TRIGLYCERIDE 116 10 - 149 mg/dL INTERFACE SYSTEM HDL 58 40 - 59 mg/dL INTERFACE SYSTEM CHOL/HDL RATIO 4.2 2.0 - 5.0 INTER FACE SYSTEM LDL CALCULATED 163(H) <=99 mg/dL INTERFACE SYSTEM LIPID PANEL COMMENT See Below INTERFACE SYSTEM Comment: The adult ATP and pediatric NCEP classifications for lipids are available on the [facility] at: [email or web address] Select: Lab Policies and Procedures,Current Select: Lipid Panel Interpretation 12/18/2006 7:56 AM CDT Nury Alfredo MD CHEMISTRY ORDERABLES Edited INTERFACE SYSTEM Refer to clinic/hospital department * (ABNORMAL) COMPREHENSIVE METABOLIC PANEL (12/18/2006 7:56 AM CDT) GLUCOSE 100(H) 65 - 99 mg/dL INTERFACE SYSTEM CREATININE 0.60 0.51 - 0.95 mg/dL INTERFACE SYSTEM CALCIUM 9.5 8.4 - 10.2 mg/dL INTERFACE SYSTEM ALKALINE PHOSPHATASE 76 35 - 104 U/L INTERFACE SYSTEM AST 23 12 - 32 U/L INTERFACE SYSTEM ALT 18 0 - 31 U/L INTERFACE SYSTEM TOTAL PROTEIN 7.5 6.3 - 8.6 g/dL INTERFACE SYSTEM ALBUMIN 4.6 3.4 - 4.8 g/dL INTERFACE SYSTEM BILIRUBIN TOTAL 0.3 0.2 - 1.0 mg/dL INTERFACE SYSTEM BUN 18 6 - 20 mg/dL INTERFACE SYSTEM SODIUM 142 135 - 145 mmol/L INTERFACE SYSTEM POTASSIUM 4.1 3.5 - 4.9 mmol/L INTERFACE SYSTEM CHLORIDE 102 96 - 108 mmol/L INTERFACE SYSTEM CO2 31(H) 22 - 30 mmol/L INTERFACE SYSTEM GFR, >60 >=60 mL/min/1. 7 sq meter INTERFACE SYSTEM GFR >60 >=60 mL/min/1. 7 sq meter INTERFACE SYSTEM Comment: Estimated GFR rate interpretative information for both Americans and non- Americans is available on the [facility] at: [email or web address] Select: Lab Policies and Procedures Select: Reference Ranges - GFR 12/18/2006 7:56 AM CDT Nury Alfredo MD CHEMISTRY ORDERABLES Edited INTERFACE SYSTEM Refer to clinic/hospital department documented in this encounter Visit Diagnoses Diagnosis Other abnormal clinical finding- Primary documented in this encounter Care Teams Real Estate Director Relationship Specialty Start Date End Date Nury Alfredo MD [address] [facility] [address] [place] [phone] PCP - General 08/26/00 07/26/17 documented as of this encounter
--- OUTSIDE RECORDS SUMMARY | 2024-11-17 11:24 | XMS_ITS | Encounter Summary ---
Author Organization [facility] Address [address] [place] [address] Care Team Providers Care Aircraft Engine Specialist Name Role Phone Nury Alfredo MD Primary Care Provider Encounter Details Date Type Department Care Team (Latest Contact Info) Description 01/10/2007 Outpatient Historical [facility] Mike Steen [facility] [address] [facility] [address] [place] [phone] Special Screening for Osteoporosis (Primary Dx) Social History Tobacco Use Types Packs/Day Years Used Date Smoking Tobacco: Never Assessed Comments Unknown Sex and Gender Information Value Date Recorded Sex Assigned at Not on file 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
--- OUTSIDE RECORDS SUMMARY | 2024-11-17 11:24 | XMS_ITS | Encounter Summary ---
Author Organization [facility] Address [address] [place] [address] Care Team Providers Care Instrument Repair Supervisor Name Role Phone Nury Alfredo MD Primary Care Provider [phone] Encounter Details Date Type Department Care Team (Latest Contact Info) Description 03/11/2007 Outpatient Historical [facility] Nury Cabello, [address] [facility] [address] [place] [address] Other Abnormal Clinical Finding Social History Tobacco Use Types Packs/Day Years Used Date Smoking Tobacco: Never Assessed Comments Unknown Sex and Gender Information Value Date Recorded Sex Assigned at Not on file Legal Sex Female 2:36 AM COORDINATOR OF REHABILITATION SERVICES Gender Identity Not on file Sexual Orientation Not on file documented as of this encounter Plan of Treatment Not on file documented as of this encounter Procedures Procedure Name Priority Date/Time Associated Diagnosis Comments HEPATIC FUNCTION PANEL Routine 03/11/2007 8:42 AM COORDINATOR OF REHABILITATION SERVICES LIPID PANEL Routine 03/11/2007 8:42 AM COORDINATOR OF REHABILITATION SERVICES documented in this encounter Results * HEPATIC FUNCTION PANEL (03/11/2007 8:42 AM COORDINATOR OF REHABILITATION SERVICES) ALKALINE PHOSPHATASE 75 35 - 104 U/L INTERFACE SYSTEM AST 28 12 - 32 U/L INTERFACE SYSTEM ALT 31 0 - 31 U/L INTERFACE SYSTEM TOTAL PROTEIN 7.5 6.3 - 8.6 g/dL INTERFACE SYSTEM ALBUMIN 4.6 3.4 - 4.8 g/dL INTERFACE SYSTEM BILIRUBIN TOTAL 0.3 0.2 - 1.0 mg/dL INTERFACE SYSTEM BILIRUBIN DIRECT 0.1 0.0 - 0.3 mg/dL INTERFACE SYSTEM 03/11/2007 8:42 AM COORDINATOR OF REHABILITATION SERVICES Nury Alfredo MD CHEMISTRY ORDERABLES Edited Performing Organization Address [facility] [place] [facility] de Phone Number INTERFACE SYSTEM Refer to clinic/hospital department * (ABNORMAL) LIPID PANEL (03/11/2007 8:42 AM COORDINATOR OF REHABILITATION SERVICES) CHOLESTEROL 185 100 - 199 mg/dL INTERFACE SYSTEM TRIGLYCERIDE 89 10 - 149 mg/dL INTERFACE SYSTEM HDL 60(H) 40 - 59 mg/dL INTERFACE SYSTEM CHOL/HDL RATIO 3.1 2.0 - 5.0 INTER FACE SYSTEM LDL CALCULATED 107(H) <=99 mg/dL INTERFACE SYSTEM LIPID PANEL COMMENT See Below INTERFACE SYSTEM Comment: The adult ATP and pediatric NCEP classifications for lipids are available on the [facility] [facility] at: [email or web address] Select: Lab Policies and Procedures,Current Select: Lipid Panel Interpretation 03/11/2007 8:42 AM COORDINATOR OF REHABILITATION SERVICES us Nury Alfredo MD CHEMISTRY ORDERABLES Edited Performing Organization Address [facility] [place] [facility] Co de Phone Number INTERFACE SYSTEM Refer to clinic/hospital department documented in this encounter Visit Diagnoses Diagnosis Other abnormal clinical finding documented in this encounter Care Teams Instrument Repair Supervisor Relationship Specialty Start Date End Date Nury Alfredo MD [address] [facility] [address] [place] [phone] PCP - General 08/26/00 07/26/17 documented as of this encounter
--- OUTSIDE RECORDS SUMMARY | 2024-11-17 11:24 | XMS_ITS | Encounter Summary ---
Author Organization [employer] Address [address] [place] [address] Care Team Providers Care Route Delivery Supervisor Name Role Phone Nury Nelson MD Primary Care Provider [phone] Encounter Details Date Type Department Care Team (Late st Contact Info) Description 06/02/2007 Outpatient Historical [facility], Authorized P NO ADDRESS ON FILE Kristine Dhaliwal MD NO ADDRESS ON FILE Morelia Pace MD NO ADDRESS ON FILE Gera Talavera MD [address] [place] [id number] Social History Tobacco Use Types Packs/Day Years Used Date Smoking Tobacco: Never Assessed Comments Unknown Sex and Gender Information Value Date Recorded Sex Assigned at Not on file Legal Sex 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 Gender Identity Not on file Sexual Orientation Not on file documented as of this encounter Plan of Treatment Not on file documented as of this encounter Procedures Procedure Name Priority Date/Time Associated Diagnosis Comments POC GLUCOSE Routine 06/06/2007 11:10 AM CDT POC GLUCOSE Routine 06/06/2007 6:17 AM CDT POC GLUCOSE Routine 06/05/2007 8:30 PM CDT MRA HEAD WO CONTRAST Routine 06/05/2007 5:02 PM CDT POC GLUCOSE Routine 06/05/2007 4:54 PM CDT POC GLUCOSE Routine 06/05/2007 10:55 AM CDT POC GLUCOSE Routine 06/04/2007 8:44 PM CDT POC GLUCOSE Routine 06/04/2007 5:36 PM CDT CBC WITH DIFFERENTIAL Routine 06/04/2007 6:55 AM CDT LIPID PANEL Routine 06/04/2007 6:55 AM CDT VALE WITH TITER Routine 06/03/2007 5:15 PM CDT RPR Routine 06/03/2007 5:15 PM CDT SEDIMENTATION RATE Routine 06/03/2007 5: 15 PM CDT C-REACTIVE PROTEIN Routine 06/03/2007 5: 15 PM CDT MRI BRAIN W WO CONTRAST Stat 06/03/2007 12:02 PM CDT TROPONIN (W/REFLEX CKMB/CK) Timed Study 06/03/2007 8:35 AM CDT SPUTUM CULTURE WITH GRAM STAIN Timed Study 06/03/2007 7:00 AM CDT CBC WITH DIFFERENTIAL Routine 06/03/2007 7:00 AM CDT C-REACTIVE PROTEIN Routine 06/03/2007 7: 00 AM CDT T4 FREE Routine 06/03/2007 7:00 AM CDT BASIC METABOLIC PANEL Routine 06/03/2007 7:00 AM CDT TROPONIN (W/REFLEX CKMB/CK) Timed Study 06/03/2007 12:30 AM CDT XR CHEST PA OR AP 1 VW Routine 06/02/2007 9:59 PM CDT BLOOD CULTURE Routine 06/02/2007 5:55 PM CDT TROPONIN (W/REFLEX CKMB/CK) Routine 06/02/2007 5:51 PM CDT TSH Routine 06/02/2007 5:51 PM CDT VITAMIN B1 LEVEL Routine 06/02/2007 5:51 PM CDT HEMOGLOBIN A1C Routine 06/02/2007 5:51 PM CDT BLOOD CULTURE Timed Study 06/02/2007 5:50 PM CDT URINALYSIS WITH REFLEX CULTURE Routine 06/02/2007 5:28 PM CDT INFLUENZA VIRUS A AND B, ANTIGEN DETECTION Routine 06/02/2007 5:28 PM CDT URINALYSIS W/REFLEX MICROSCOPIC Routine 06/02/2007 5:[address] HEAD WO CONTRAST Routine 06/02/2007 1 0:04 AM CDT CBC WITH DIFFERENTIAL Stat 06/02/2007 9:55 AM CDT SEDIMENTATION RATE Stat 06/02/2007 9: 55 AM CDT C-REACTIVE PROTEIN Stat 06/02/2007 9: 55 AM CDT COMPREHENSIVE METABOLIC PANEL Stat 06/02/2007 9:55 AM CDT PT AND APTT Routine 06/02/2007 12:30 AM CDT documented in this encounter Results * POC GLUCOSE (06/06/2007 11:10 AM CDT) [facility] GLUCOSE POC 97 65 - 99 mg/dL [facility] Venous blood specimen (specimen) 06/06/2007 11:10 AM CDT 06/06/2007 11:10 AM CDT Morelia Pace MD POINT OF CARE TESTING Fi nal Result Performing Organization Address City/[facility] [[email or web address]] Co de Phone Number [facility] [address] [place] [address] * POC GLUCOSE (06/06/2007 6:17 AM CDT) GLUCOSE POC 67 65 - 99 mg/dL [facility] Venous blood specimen (specimen) 06/06/2007 6:17 AM CDT 06/06/2007 6:17 AM CDT Morelia Pace MD POINT OF CARE TESTING Fi nal Result Performing Organization Address [facility] [[email or web address]] Co de Phone Number [facility] [address] [place], [place] [address] * (ABNORMAL) POC GLUCOSE (06/05/2007 8:30 PM CDT) GLUCOSE POC 144(H) 65 - 99 mg/dL [facility] Venous blood specimen (specimen) 06/05/2007 8:30 PM CDT 06/05/2007 8:30 PM CDT Morelia Pace MD POINT OF CARE TESTING Fi nal Result Performing Organization Address City/[facility] [[email or web address]] Co de Phone Number [facility] [address] [place], [place] [address] * MRA HEAD WO CONTRAST (06/05/2007 5:02 PM CDT) Anatomical Region Laterality Modality Head Other 06/05/2007 5:02 PM CDT Narrative 06/06/2007 1:20 AM CDT [facility] [address] [place], [place] [address] Admit Date: 06/02/2007 KURTIS LUND Sex: F Admit Prov: KRISTINE DHALIWAL Date: 1945 Primary Care Prov: NURY NELSON CMRN: [id number] Room: [address] [place] [address] 2 SSN: [id number] IMAGING SERVICES Ordering Prov: N/A Accession Number: [id number] Interpretation MRI angio of the head without contrast MRI angio of the neck with and without intravenous gadolinium. 06/05/2007 Indication: Diplopia, rule out dissection Technique: Time of flight MRA of the head and neck were performed. Dynamic contrast-enhanced MRA of the neck was performed. Intravenous gadolinium was administered. Findings: The distal internal carotid arteries have normal flow signal intensities. The right anterior and middle cerebral arteries and branches have normal flow signals. The left A1 segment is hypoplastic. The left middle cerebral artery branches have normal flow signal. Bilateral prominent posterior communicating artery supply posterior cerebral arteries. No evidence of large vessel occlusion, aneurysm, or dissection is seen. Vertebral arteries are codominant at the basilar artery. A left pica and a prominent aica are noted. The P1 segments are hypoplastic bilaterally and there are prominent posterior communicating arteries supplying the posterior circulation. The aortic arch has normal branching configuration. The common carotid arteries have normal enhancement to the bifurcations. Internal carotid arteries appear normal in caliber from their origins to the skull base. There is some venous contamination primarily on the right side of the neck. This partially obscures the right vertebral artery on the dynamic sequences. The vertebral artery origins appear normal. Impression: 1. Normal variant MRA head as described above. 2. Normal MRA of the neck. . Dictated by: MYKEL RODRÍGUEZ 06/06/2007 00:48 Electronically signed by: MYKEL RODRÍGUEZ 06/06/2007 01:20 Procedure Note Provider, Historical - 06/06/[address] [address] Admit Date: 06/02/2007 KURTIS LUND Sex: F Admit Prov: KRISTINE DHALIWAL Date: 1945 Primary Care Prov: NURY NELSON CMRN: [id number] Room: [address] [place] [address] SSN: [id number] IMAGING SERVICES Ordering Prov: N/A Interpretation MRI angio of the head without contrast MRI angio of the neck with and without intravenous gadolinium. 06/05/2007 Indication: Diplopia, rule out dissection Technique: Time of flight MRA of the head and neck were performed.Dynamic contrast-enhanced MRA of the neck was performed. Intravenousgadolinium was administered. Findings: The distal internal carotid arteries have normal flow signalintensities. The right anterior and middle cerebral arteries and branches havenormal flow signals. The left A1 segment is hypoplastic. The left middlecerebral artery branches have normal flow signal. Bilateral prominentposterior communicating artery supply posterior cerebral arteries. No evidenceof large vessel occlusion, aneurysm, or dissection is seen. Vertebral arteries are codominant at the basilar artery. A left picaand a prominent aica are noted. The P1 segments are hypoplastic bilaterallyand there are prominent posterior communicating arteries supplying the posterior circulation. The aortic arch has normal branching configuration. The commoncarotid arteries have normal enhancement to the bifurcations. Internalcarotid arteries appear normal in caliber from their origins to the skullbase. There is some venous contamination primarily on the right side of theneck. This partially obscures the right vertebral artery on the dynamic sequences. The vertebral artery origins appear normal. Impression: 1. Normal variant MRA head as described above. 2. Normal MRA of the neck. . Dictated by: MYKEL RODRÍGUEZ 06/06/2007 00:48 Electronically signed by: MYKEL RODRÍGUEZ 06/06/2007 01:20 Marina Hardin MD MR ORDERABLES Final Result * POC GLUCOSE (06/05/2007 4:54 PM CDT) GLUCOSE POC 84 65 - 99 mg/dL [facility] Venous blood specimen (specimen) 06/05/2007 4:54 PM CDT 06/05/2007 4:54 PM CDT Morelia Pace MD POINT OF CARE TESTING Fi nal Result [facility] [address] [place] [address] * POC GLUCOSE (06/05/2007 10:55 AM CDT) GLUCOSE POC 98 65 - 99 mg/dL [facility] Venous blood specimen (specimen) 06/05/2007 10:55 AM CDT 06/05/2007 10:55 AM CDT Morelia Pace MD POINT OF CARE TESTING Fi nal Result [facility] [address] [place] [address] * (ABNORMAL) POC GLUCOSE (06/04/2007 8:44 PM CDT) GLUCOSE POC 119(H) 65 - 99 mg/dL [facility] Venous blood specimen (specimen) 06/04/2007 8:44 PM CDT 06/04/2007 8:44 PM CDT Morelia Pace MD POINT OF CARE TESTING Fi nal Result [facility] [address] [place] [address] * (ABNORMAL) POC GLUCOSE (06/04/2007 5:36 PM CDT) GLUCOSE POC 100(H) 65 - 99 mg/dL [facility] Venous blood specimen (specimen) 06/04/2007 5:36 PM CDT 06/04/2007 5:36 PM CDT Morelia Pace MD POINT OF CARE TESTING Fi nal Result [facility] [address] [place] [address] * (ABNORMAL) CBC WITH DIFFERENTIAL (06/04/2007 6:55 AM CDT) HEMOGLOBIN 13.5 11.8 - 14.8 g/dL [facility] RDW 13.3 11.5 - 14.5 % [facility] WBC 4.7 4.0 - 9.8 K/uL [facility] MCH 30.4 27.2 - 32.6 pg [facility] MPV 9.2(L) 9.3 - 12.4 fL [facility] HEMATOCRIT 41.8 35.5 - 44.0 % [facility] RDW-STDEV 45.7 37.1 - 48.7 fL [facility] RBC 4.44 3.90 - 4.90 M/uL [facility] MCHC 32.3 31.5 - 35.5 % [facility] MCV 94.1 82.0 - 99.0 fL [facility] PLATELETS 250 140 - 350 K/uL [facility] EOSINOPHIL ABSOLUTE 0.08 0.00 - 0.70 K/uL [facility] LYMPHOCYTES 29 16 - 45 % [facility] LYMPHOCYTE ABSOLUTE 1.34 0.70 - 4.50 K/uL [facility] BASOPHILS ABSOLUTE 0.02 0.00 - 0.20 K/uL [facility] BASOPHILS 0 0 - 2 % [facility] MONOCYTES 10 3 - 13 % [facility] MONOCYTE ABSOLUTE 0.48 0.10 - 1.30 K/uL [facility] NEUTROPHILS 59 45 - 70 % [facility] NEUTROPHIL ABSOLUTE 2.78 1.90 - 7.00 K/uL [facility] EOSINOPHILS 2 0 - 7 % [facility] Blood specimen (specimen) 06/04/2007 6:55 AM CDT 06/04/2007 7:07 AM CDT Kristine Dhaliwal MD HEMATOLOGY ORDERABLES Edited Performing Organization Address City/[facility] [[email or web address]] Co de Phone Number INTERFACE SYSTEM Refer to clinic/hospital department [facility] [address] [place] [address] * LIPID PANEL (06/04/2007 6:55 AM CDT) [facility] HDL 44 40 - 59 mg/dL [facility] CHOLESTEROL 139 100 - 199 mg/dL [facility] CHOL/HDL RATIO 3.2 2.0 - 5.0 [facility] TRIGLYCERIDE 96 10 - 149 mg/dL [facility] LDL CALCULATED 76 <=99 mg/dL [facility] LIPID PANEL COMMENT See Below [facility] Comment: The adult ATP and pediatric NCEP classifications for lipids are available on the [facility] Intranet at: [email or web address] Select: Lab Policies and Procedures,Current Select: Lipid Panel Interpretation Blood specimen (specimen) 06/04/2007 6:55 AM CDT 06/04/2007 7:07 AM CDT Kristine Dhaliwal MD CHEMISTRY ORDERABLES Edited Performing Organization Address City/[facility] [[email or web address]] Co de Phone Number [facility] [address] [place] [address] * VALE WITH TITER (06/03/2007 5:15 PM CDT) [facility] VALE SCREEN NEGATIVE NEGATIVE [facility] Comment: Lab test performed by: [employer] [address] [address] ANGELY HWANG MD Blood specimen (specimen) 06/03/2007 5:15 PM CDT 06/03/2007 5:19 PM CDT Kristine Dhaliwal MD CHEMISTRY ORDERABLES Final Re sult Performing Organization Address [facility] [[email or web address]] Co de Phone Number [facility] [address] [place] [address] * RPR (06/03/2007 5:15 PM CDT) RPR NON-REACTI VE NON-REACT CIERRA [facility] Comment: Lab test performed by: [employer] [address] [address] ANGELY HWANG MD Blood specimen (specimen) 06/03/2007 5:15 PM CDT 06/03/2007 5:19 PM CDT Kristine Dhaliwal MD CHEMISTRY ORDERABLES Final Re sult Performing Organization Address [facility] [[email or web address]] Co de Phone Number [facility] [address] [place] [address] * (ABNORMAL) C-REACTIVE PROTEIN (06/03/2007 5:15 PM CDT) [facility] CRP 2.2(H) 0.0 - 0.8 mg/dL [facility] Blood specimen (specimen) 06/03/2007 5:15 PM CDT 06/03/2007 5:19 PM CDT Kristine Dhaliwal MD CHEMISTRY ORDERABLES Final Re sult Performing Organization Address [facility] [[email or web address]] Co de Phone Number [facility] [address] [place] [address] * SEDIMENTATION RATE (06/03/2007 5:15 PM CDT) [facility] ESR (SEDIMENTATION RATE) 30 0 - 30 mm/hr [facility] Blood specimen (specimen) 06/03/2007 5:15 PM CDT 06/03/2007 5:19 PM CDT us Kristine Dhaliwal MD HEMATOLOGY ORDERABLES Final R esult [facility] [address] [place] [address] * MRI BRAIN W WO CONTRAST (06/03/2007 12:02 PM CDT) Anatomical Region Laterality Modality Head Other 06/03/2007 12:0 2 PM CDT Narrative 06/04/2007 9:17 PM CDT [facility] [address] [place], [place] [address] Admit Date: 06/02/2007 KURTIS LUND Sex: F Admit Prov: KRISTINE DHALIWAL Date: 1945 Primary Care Prov: NURY NELSON CMRN: [id number] Room: [address] [place] [address] SSN: [id number] IMAGING SERVICES Ordering Prov: N/A Accession Number: [id number] Interpretation MR IMAGING OF THE BRAIN WITHOUT AND WITH IV CONTRAST, 06/03/2007 History: Headaches, generalized weakness, and diplopia. Findings: The ventricular system of the brain is midline without shift, dilatation or mass effect. Midbrain, mikey and medulla appear normal. There is no evidence of diffusion restriction to suggest an acute infarct. Magnetic susceptibility images show some calcifications in the globus pallidus regions. These are evident on CT. No abnormal enhancement is seen after contrast administration. Flow-void is evident in the internal carotid arteries. The posterior circulation is hypoplastic. Impression: Hypoplastic posterior circulation. Otherwise negative exam. . Dictated by: TYRA YANES 06/03/2007 12:09 Electronically signed by: TYRA YANES 06/04/2007 21:17 Transcribed: 06/03/2007 18:47 DKT Procedure Note Provider, Historical - 06/04/2007 [facility] [address] [place], [place] [address] Admit Date: 06/02/2007 KURTIS LUND Sex: F Admit Prov: KRISTINE DHALIWAL Date: 1945 Primary Care Prov: NURY NELSON CMRN: [id number] Room: [address] [place] [address] SSN: [id number] IMAGING SERVICES Ordering Prov: N/A Interpretation MR IMAGING OF THE BRAIN WITHOUT AND WITH IV CONTRAST, 06/03/2007 History: Headaches, generalized weakness, and diplopia. Findings: The ventricular system of the brain is midline withoutshift, dilatation or mass effect. Midbrain, mikey and medulla appear normal.There is no evidence of diffusion restriction to suggest an acuteinfarct. Magnetic susceptibility images show some calcifications in theglobus pallidus regions. These are evident on CT. No abnormal enhancement isseen after contrast administration. Flow-void is evident in the internalcarotid arteries. The posterior circulation is hypoplastic. Impression: Hypoplastic posterior circulation. Otherwise negativeexam. . Dictated by: TYRA YANES 06/03/2007 12:09 Electronically signed by: TYRA YANES 06/04/2007 21:17 Transcribed: 06/03/2007 18:47 DKT Alvaro Aguilera DO MR ORDERABLES Final Result * TROPONIN (W/REFLEX CKMB/CK) (06/03/2007 8:35 AM CDT) TROPONIN T <0.01 <=0.03 ng/mL [facility] TROPONIN T INTERP Negative [facility] Blood specimen (specimen) 06/03/2007 8:35 AM CDT 06/03/2007 8:39 AM CDT Kristine Dhaliwal MD CHEMISTRY ORDERABLES Edited [facility] [address] [place] [address] * SPUTUM CULTURE WITH GRAM STAIN (06/03/2007 7:00 AM CDT) GRAM STAIN Non diagnostic pattern Rare WBC's seen INTERFACE SYSTEM PRELIMINARY REPORT Heavy growth Haemophilus influenzae beta-lactamase negative Note: A few beta-lactamase negative strains may be ampicillin resistant. Heavy growth normal upper respiratory maurizio INTERFACE SYSTEM SUSCEPTIBILITY PERFORMED ON HAEMOPHILUS INFLUENZAE INTERFACE SYSTEM FINAL REPORT Heavy growth Haemophilus influenzae beta-lactamase negative Note: A few beta-lactamase negative strains may be ampicillin resistant. Heavy growth normal upper respiratory maurizio INTERFACE SYSTEM 06/03/2007 7:00 AM CDT 06/03/2007 8:13 AM CDT Narrative Organism Antibiotic Method Susceptibility Haemophilus influenzae CEFOTAXIME E TEST <=0.016: Susceptible Haemophilus influenzae AMPICILLIN E TEST 0.5: Susceptible Haemophilus influenzae CEFUROXIME-SODIUM E TEST 0.75: Susceptible Haemophilus influenzae TRIMETHOPRIM/ SULFAMETHOXAZOLE E TEST 0.19: Susceptible Kristine Dhaliwal MD MICROBIOLOGY - GENERAL ORDERA BLES Final Result Performing Organization Address City/[facility]/ZIP Co de Phone Number INTERFACE SYSTEM Refer to clinic/hospital department * T4 FREE (06/03/2007 7:00 AM CDT) Pathologist [facility] T4 FREE 1.3 0.9 - 1.7 ng/dL [facility] Blood specimen (specimen) 06/03/2007 7:00 AM CDT 06/03/2007 7:26 AM CDT Kristine Dhaliwal MD CHEMISTRY ORDERABLES Final Re sult Performing Organization Address City/State/[facility] [[email or web address]] Co de Phone Number [facility] [address] [facility] [facility] [address] [place] [address] * (ABNORMAL) C-REACTIVE PROTEIN (06/03/2007 7:00 AM CDT) Pathologist [facility] CRP 2.9(H) 0.0 - 0.8 mg/dL [facility] Blood specimen (specimen) 06/03/2007 7:00 AM CDT 06/03/2007 7:26 AM CDT Kristine Dhaliwal MD CHEMISTRY ORDERABLES Final Re sult Performing Organization Address City/[facility]/ZIP Co de Phone Number [facility] [address] [place] [address] * (ABNORMAL) BASIC METABOLIC PANEL (06/03/2007 7:00 AM CDT) GLUCOSE 96 65 - 99 mg/dL [facility] SODIUM 138 135 - 145 mmol/L [facility] CALCIUM 8.1(L) 8.4 - 10.2 mg/dL [facility] CO2 27 22 - 30 mmol/L [facility] CREATININE 0.56 0.51 - 0.95 mg/dL [facility] POTASSIUM 3.6 3.5 - 4.9 mmol/L [facility] BUN 10 6 - 20 mg/dL [facility] CHLORIDE 104 96 - 108 mmol/L [facility] GFR, >60 >=60 mL/min/1. 7 sq meter [facility] GFR >60 >=60 mL/min/1. 7 sq meter [facility] Comment: Estimated GFR rate interpretative information for both Americans and non- Americans is available on the [facility] Intranet at: [email or web address] Select: Lab Policies and Procedures Select: Reference Ranges - GFR Blood specimen (specimen) 06/03/2007 7:00 AM CDT 06/03/2007 7:26 AM CDT Kristine Dhaliwal MD CHEMISTRY ORDERABLES Edited [facility] [address] [place] [address] * (ABNORMAL) CBC WITH DIFFERENTIAL (06/03/2007 7:00 AM CDT) RDW 13.4 11.5 - 14.5 % [facility] WBC 3.4(L) 4.0 - 9.8 K/uL [facility] MCH 30.9 27.2 - 32.6 pg [facility] MPV 9.6 9.3 - 12.4 fL [facility] HEMATOCRIT 41.2 35.5 - 44.0 % [facility] RDW-STDEV 46.6 37.1 - 48.7 fL [facility] RBC 4.37 3.90 - 4.90 M/uL [facility] MCHC 32.8 31.5 - 35.5 % [facility] MCV 94.3 82.0 - 99.0 fL [facility] PLATELETS 236 140 - 350 K/uL [facility] HEMOGLOBIN 13.5 11.8 - 14.8 g/dL [facility] EOSINOPHILS 2 0 - 7 % [facility] EOSINOPHIL ABSOLUTE 0.07 0.00 - 0.70 K/uL [facility] LYMPHOCYTES 36 16 - 45 % [facility] LYMPHOCYTE ABSOLUTE 1.19 0.70 - 4.50 K/uL [facility] BASOPHILS 1 0 - 2 % [facility] BASOPHILS ABSOLUTE 0.02 0.00 - 0.20 K/uL [facility] MONOCYTES 14(H) 3 - 13 % [facility] MONOCYTE ABSOLUTE 0.47 0.10 - 1.30 K/uL [facility] NEUTROPHILS 48 45 - 70 % [facility] NEUTROPHIL ABSOLUTE 1.60(L) 1.90 - 7.00 K/uL [facility] Blood specimen (specimen) 06/03/2007 7:00 AM CDT 06/03/2007 8:02 AM CDT Kristine Dhaliwal MD HEMATOLOGY ORDERABLES Edited INTERFACE SYSTEM Refer to clinic/hospital department [facility] [address] [place] [address] * TROPONIN (W/REFLEX CKMB/CK) (06/03/2007 12:30 AM CDT) TROPONIN T <0.01 <=0.03 ng/mL [facility] TROPONIN T INTERP Negative [facility] Blood specimen (specimen) 06/03/2007 12:30 AM CDT 06/03/2007 12:41 AM CDT Kristine Dhaliwal MD CHEMISTRY ORDERABLES Edited [facility] [address] [place] [address] * XR CHEST PA OR AP (06/02/2007 9:59 PM CDT) Anatomical Region Laterality Modality Chest Other 06/02/2007 9:59 PM CDT Narrative 06/03/2007 8:38 AM CDT [facility] [address] [place], [place] [address] Admit Date: 06/02/2007 FOUZIAXIOMARAKURTIS Sex: F Admit Prov: KRISTINE DHALIWAL Date: 1945 Primary Care Prov: NURY NELSON CMRN: [id number] Room: [address] [place] [address] 2 SSN: [id number] IMAGING SERVICES Ordering Prov: N/A Accession Number: [id number] Interpretation CHEST, 06/02/2007 Clinical History: Influenza, in respiratory isolation. Findings: AP portable upright view of the chest on 06/02/2007 at 2210 hours demonstrates monitoring leads overlying the chest. The heart is at the upper limits of normal in size. Pulmonary vasculature is not congested. Lungs are clear of acute processes. No effusions or pneumothoraces are evident. Impression: No acute disease. . Dictated by: DONYA ALEJANDRO 06/03/2007 07:46 Electronically signed by: DONYA ALEJANDRO06/03/2007 08:38 Transcribed: 06/03/2007 08:30 DKT Procedure Note Donya Alejandro MD - 06/03/2007 [facility] [address], [place] [address] Admit Date: 06/02/2007 KURTIS LUND Sex: F Admit Prov: KRISTINE DHALIWAL Date: 1945 Primary Care Prov: OMAR NURY D CMRN: [id number] Room: [address] [place] [address] SSN: [id number] IMAGING SERVICES Ordering Prov: N/A Interpretation CHEST, 06/02/2007 Clinical History: Influenza, in respiratory isolation. Findings: AP portable upright view of the chest on 06/02/2007 at 2210hours demonstrates monitoring leads overlying the chest. The heart is atthe upper limits of normal in size. Pulmonary vasculature is notcongested. Lungs are clear of acute processes. No effusions or pneumothoracesare evident. Impression: No acute disease. . Dictated by: DONYA ALEJANDRO 06/03/2007 07:46 Electronically signed by: DONYA ALEJANDRO06/03/2007 08:38 Transcribed: 06/03/2007 08:30 DKT us Kristine Dhaliwal MD DIAGNOSTIC IMAGING ORDERABLES Final Result * BLOOD CULTURE (06/02/2007 5:55 PM CDT) PRELIMINARY REPORT No growth to date. Culture in progress INTERFACE SYSTEM FINAL REPORT No growth 5 days INTERFACE SYSTEM Blood specimen (specimen) 06/02/2007 5:55 PM CDT 06/02/2007 6:31 PM CDT Kristine Dhaliwal MD MICROBIOLOGY - GENERAL ORDERA BLES Final Result INTERFACE SYSTEM Refer to clinic/hospital department * (ABNORMAL) TSH (06/02/2007 5:51 PM CDT) TSH 7.04(H) 0.27 - 4.20 uU/mL [facility] Blood specimen (specimen) 06/02/2007 5:51 PM CDT 06/02/2007 6:16 PM CDT Kristine Dhaliwal MD CHEMISTRY ORDERABLES Final Re sult Performing Organization Address City/[facility] [[email or web address]] Co de Phone Number [facility] [address] [place] [place] [address] * (ABNORMAL) HEMOGLOBIN A1C (06/02/2007 5:51 PM CDT) Pathologist [facility] GLUCOSE, MEAN BLOOD 143 mg/dL [facility] HEMOGLOBIN A1C 6.2(H) 4.1 - 6.1 % of Hgb [facility] Blood specimen (specimen) 06/02/2007 5:51 PM CDT 06/02/2007 6:16 PM CDT Kristine Dhaliwal MD CHEMISTRY ORDERABLES Final Re sult Performing Organization Address City/[facility]/ZIP Co de Phone Number [facility] [address] [place] [address] * VITAMIN B1 (06/02/2007 5:51 PM CDT) VITAMIN B1 101 87 - 280 nmol/L [facility] Comment: Lab test performed by: [employer] [facility] [address] [place] [address] SHERMAN FLAHERTY MD Blood specimen (specimen) 06/02/2007 5:51 PM CDT 06/02/2007 6:23 PM CDT Kristine Dhaliwal MD CHEMISTRY ORDERABLES Final Re sult Performing Organization Address [facility]/ZIP Co de Phone Number [facility] [address] [place] [address] * TROPONIN (W/REFLEX CKMB/CK) (06/02/2007 5:51 PM CDT) TROPONIN T <0.01 <=0.03 ng/mL [facility] TROPONIN T INTERP Negative [facility] Blood specimen (specimen) 06/02/2007 5:51 PM CDT 06/02/2007 6:16 PM CDT us Kristine Dhaliwal MD CHEMISTRY ORDERABLES Edited Performing Organization Address [facility] [[email or web address]] Co de Phone Number [facility] [address], [place] [address] * BLOOD CULTURE (06/02/2007 5:50 PM CDT) PRELIMINARY REPORT No growth to date. Culture in progress INTERFACE SYSTEM FINAL REPORT No growth 5 days INTERFACE SYSTEM Blood specimen (specimen) 06/02/2007 5:50 PM CDT 06/02/2007 6:31 PM CDT Kristine Dhaliwal MD MICROBIOLOGY - GENERAL ORDERA BLES Final Result Performing Organization Address City/[facility]/ZIP Co de Phone Number INTERFACE SYSTEM Refer to clinic/hospital department * (ABNORMAL) URINALYSIS (06/02/2007 5:28 PM CDT) EPITHELIAL CELLS, URINE 0-2 /HPF [facility] PH UA 5.5 5.0 - 8.0 [facility] KETONES UA Negative Negative [facility] WBC UA 1 0 - 5 /HPF [facility] CLARITY UA Clear Clear [facility] PROTEIN UA Negative Negative [facility] BILIRUBIN UA Negative Negative [facility] LEUKOCYTE ESTERASE UA Negative Negative [facility] RBC UA 1 0 - 4 /HPF [facility] SPECIFIC GRAVITY UA 1.013 1.001 - 1.035 [facility] BLOOD UA Trace(A) Negative [facility] GLUCOSE UA Negative Negative [facility] COLOR UA Pale Yellow [facility] NITRITE UA Negative Negative [facility] UROBILINOGEN UA <1 <=1 mg/dL [facility] 06/02/2007 5:28 PM CDT 06/02/2007 5:31 PM CDT Kristine Dhaliwal MD URINE ORDERABLES Final Result Performing Organization Address [facility] [[email or web address]] Co de Phone Number [facility] [address] [place] [address] * INFLUENZA VIRUS A AND B ANTIGEN (06/02/2007 5:28 PM CDT) FINAL REPORT Influenza A Antigen: Negative by ICT assay. Influenza B Antigen: Negative by ICT assay. -- Note: A negative does not rule out infection. INTERFACE SYSTEM 06/02/2007 5:28 PM CDT 06/02/2007 8:13 PM CDT Narrative INTERFACE SYSTEM - 06/02/2007 8:13 PM CDT Nasal wash specimens are optimal for test performance. Specimen collection of a nasopharyngeal swab is less sensitive for viral detection. Kristine Dhaliwal MD MICROBIOLOGY - GENERAL ORDERA BLES Final Result Performing Organization Address City/[facility]/ZIP Co de Phone Number INTERFACE SYSTEM Refer to clinic/hospital department * URINALYSIS WITH REFLEX CULTURE (06/02/2007 5:28 PM CDT) URINE CULTURE ORDER Not indicated [facility] Comment: Criteria for a reflex culture include one or more of the following: Abnormal nitrite, leukocyte esterase, WBCs or RBCs. Lack of qualifying criteria does not exclude the possiblity of a urinary tract infection. Dilute urine, drug interference, etc. may decrease the sensitivity of the criteria analytes. Urine, clean catch 06/02/2007 5:28 PM CDT 06/02/2007 5:31 PM CDT us Kristine Dhaliwal MD URINE ORDERABLES Final Result [facility] [address] [place] [address] * CT HEAD WO CONTRAST (06/02/2007 10:04 AM CDT) Anatomical Region Laterality Modality Head Other 06/02/2007 10:0 4 AM CDT Narrative 06/02/2007 10:29 AM CDT [facility] [address] [place], [place] [address] Admit Date: 06/02/2007 KURTIS LUND Sex: F Admit Prov: DELMI LAND Date: 1945 Primary Care Prov: NURY NELSON Rafael CMRN: [id number] Room: [facility] SSN: [id number] IMAGING SERVICES Ordering Prov: N/A Accession Number: [id number] Interpretation CT SCAN OF THE HEAD, NONCONTRAST, 06/02/2007 History: Blurred vision, central diplopia. Findings: The ventricular system of the brain is midline without shift, dilatation or mass effect. Minimal calcifications of the globus pallidus are noted bilaterally. There are probable prominent Virchow-Marcus spaces in the basal ganglia bilaterally. No intracranial hemorrhage is seen. Minimal atherosclerotic calcification is noted in the internal carotid arteries' cavernous and supraclinoid portions, bilaterally. Mastoid air cells are clear. Midbrain, mikey and medulla appear normal. No orbital abnormalities are identified but the study was not tailored to evaluate these. Impression: Atherosclerotic calcification. Prominent Virchow-Marcus spaces. Incidental globus pallidus calcifications. Otherwise negative. Report was faxed to the emergency department. . Dictated by: TYRA YANES 06/02/2007 10:03 Electronically signed by: TYRA YANES 06/02/2007 10:29 Transcribed: 06/02/2007 10:29 DKT Procedure Note Provider, Historical - 06/02/2007 [facility] [address], [place] [address] Admit Date: 06/02/2007 KURTIS LUND Sex: F Admit Prov: ER, AUTHORIZED P Date: 1945 Primary Care Prov: NURY NELSON CMRN: [id number] Room: [facility] SSN: [id number] IMAGING SERVICES Ordering Prov: N/A Interpretation CT SCAN OF THE HEAD, NONCONTRAST, 06/02/2007 History: Blurred vision, central diplopia. Findings: The ventricular system of the brain is midline withoutshift, dilatation or mass effect. Minimal calcifications of the globuspallidus are noted bilaterally. There are probable prominent Virchow-Robinspaces in the basal ganglia bilaterally. No intracranial hemorrhage is seen.Minimal atherosclerotic calcification is noted in the internal carotidarteries' cavernous and supraclinoid portions, bilaterally. Mastoid air cellsare clear. Midbrain, mikey and medulla appear normal. No orbitalabnormalities are identified but the study was not tailored to evaluate these. Impression: Atherosclerotic calcification. Prominent Virchow-Marcus spaces. Incidental globus pallidus calcifications. Otherwise negative. Report was faxed to the emergency department. . Dictated by: TYRA YANES 06/02/2007 10:03 Electronically signed by: TYRA YANES 06/02/2007 10:29 Transcribed: 06/02/2007 10:29 DKT Alavro Aguilera DO CT ORDERABLES Final Result * (ABNORMAL) C-REACTIVE PROTEIN (06/02/2007 9:55 AM CDT) CRP 5.1(H) 0.0 - 0.8 mg/dL [facility] Blood specimen (specimen) 06/02/2007 9:55 AM CDT 06/02/2007 9:55 AM CDT Alvaro Aguilera DO CHEMISTRY ORDERABLES Final Re sult [facility] [address] [place] [address] * (ABNORMAL) COMPREHENSIVE METABOLIC PANEL (06/02/2007 9:55 AM CDT) CALCIUM 8.9 8.4 - 10.2 mg/dL [facility] CHLORIDE 102 96 - 108 mmol/L [facility] ALBUMIN 4.4 3.4 - 4.8 g/dL [facility] CREATININE 0.51 0.51 - 0.95 mg/dL [facility] SODIUM 138 135 - 145 mmol/L [facility] ALT 38(H) 0 - 31 U/L [facility] ALKALINE PHOSPHATASE 68 35 - 104 U/L [facility] BILIRUBIN TOTAL 0.2 0.2 - 1.0 mg/dL [facility] CO2 28 22 - 30 mmol/L [facility] TOTAL PROTEIN 7.8 6.3 - 8.6 g/dL [facility] POTASSIUM 3.5 3.5 - 4.9 mmol/L [facility] GLUCOSE 94 65 - 99 mg/dL [facility] AST 59(H) 12 - 32 U/L [facility] BUN 16 6 - 20 mg/dL [facility] GFR, >60 >=60 mL/min/1.7 sq meter [facility] GFR >60 >=60 mL/min/1.7 sq meter [facility] Comment: Estimated GFR rate interpretative information for both Americans and non- Americans is available on the [facility] Intranet at: [email or web address] Select: Lab Policies and Procedures Select: Reference Ranges - GFR Blood specimen (specimen) 06/02/2007 9:55 AM CDT 06/02/2007 9:55 AM CDT Alvaro Aguilera DO CHEMISTRY ORDERABLES Edited [facility] [address] [place] [address] * (ABNORMAL) CBC WITH DIFFERENTIAL (06/02/2007 9:55 AM CDT) WBC 5.0 4.0 - 9.8 K/uL [facility] MCH 31.0 27.2 - 32.6 pg [facility] PLATELETS 259 140 - 350 K/uL [facility] HEMATOCRIT 43.5 35.5 - 44.0 % [facility] MPV 9.5 9.3 - 12.4 fL [facility] RBC 4.65 3.90 - 4.90 M/uL [facility] MCHC 33.1 31.5 - 35.5 % [facility] MCV 93.5 82.0 - 99.0 fL [facility] RDW-STDEV 45.9 37.1 - 48.7 fL [facility] HEMOGLOBIN 14.4 11.8 - 14.8 g/dL [facility] RDW 13.5 11.5 - 14.5 % [facility] NEUTROPHILS 67 45 - 70 % [facility] NEUTROPHIL ABSOLUTE 3.36 1.90 - 7.00 K/uL [facility] EOSINOPHILS 1 0 - 7 % [facility] EOSINOPHIL ABSOLUTE 0.03 0.00 - 0.70 K/uL [facility] LYMPHOCYTES 19 16 - 45 % [facility] LYMPHOCYTE ABSOLUTE 0.94 0.70 - 4.50 K/uL [facility] BASOPHILS 0 0 - 2 % [facility] BASOPHILS ABSOLUTE 0.02 0.00 - 0.20 K/uL [facility] MONOCYTES 14(H) 3 - 13 % [facility] MONOCYTE ABSOLUTE 0.69 0.10 - 1.30 K/uL [facility] Blood specimen (specimen) 06/02/2007 9:55 AM CDT 06/02/2007 9:55 AM CDT Alvaro Aguilera DO HEMATOLOGY ORDERABLES Edited Performing Organization Address City/[facility] de Phone Number INTERFACE SYSTEM Refer to clinic/hospital department [facility] [address], [place] [address] * SEDIMENTATION RATE (06/02/2007 9:55 AM CDT) ESR (SEDIMENTATION RATE) 26 0 - 30 mm/hr [facility] Blood specimen (specimen) 06/02/2007 9:55 AM CDT 06/02/2007 9:55 AM CDT Alvaro Aguilera DO HEMATOLOGY ORDERABLES Final R esult Performing Organization Address City/[facility] [[email or web address]] Co de Phone Number [facility] [address] [place] [address] * PT AND APTT (06/02/2007 12:30 AM CDT) PROTIME 13.9 12.7 - 15.1 Seconds [facility] INR 1.1 0.9 - 1.1 [facility] Comment: INR Therapeutic Range: Adult: 2.0 - 3.0 for pulmonary embolism or prophylaxis against venous thrombosis or systemic embolization. 2.0 - 3.0 for patients with tissue heart valves. 2.5 - 3.5 for patients with mechanical heart valves or post NV. Pediatric (12 years and under): 1.5 - 3.0 Although the target range in children is not well established, INR values of 1.5 - 3.0 are recommended for most patients. Higher values have been used in children with prosthetic cardiac valves and hereditary clotting disorders. (<3 days) therapeutic ranges have not been established. PTT 34.5 24.4 - 36.4 Seconds [facility] Comment: PTT Therapeutic Range: Heparin Level PTT (seconds) <0.10 units/mL <53 0.10 - 0.30 units/mL 53 - 67 0.30 - 0.70 units/mL* 67 - 95* 0.70 - 1.00 units/mL 95 - 116 *corresponds to therapeutic range for unfractionated heparin Blood specimen (specimen) 06/02/2007 12:30 AM CDT 06/03/2007 12:41 AM CDT Narrative [facility] - 06/03/2007 1:02 AM CDT off blood in lab us Kristine Dhaliwal MD HEMATOLOGY ORDERABLES Edited [facility] [address] [place] [place] [address] documented in this encounter Visit Diagnoses Not on filedocumented in this encounter Care Teams Route Delivery Supervisor Relationship Specialty Start Date End Date Nury Nelson MD [address] [place] [phone] PCP - General 08/26/00 07/26/17 documented as of this encounter
--- OUTSIDE RECORDS SUMMARY | 2024-11-17 11:25 | XMS_ITS | Encounter Summary ---
Author Organization [facility] Address [address] [place] [address] Care Team Providers Care Meteorologist In Charge Name Role Phone Nury Alfredo MD Primary Care Provider [phone] Encounter Details Date Type Department Care Team (Late st Contact Info) Description 10/29/1999 Outpatient Historical [facility] CADDY MASTER - Medical [facility] [address] [facility] [address] [address] Peterson Sinha MD [address] [place], [place] [id number] Social History Tobacco Use Types Packs/Day Years Used Date Smoking Tobacco: Never Assessed Comments Unknown Sex and Gender Information Value Date Recorded Sex Assigned at Not on file 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
--- OUTSIDE RECORDS SUMMARY | 2024-11-17 11:25 | XMS_ITS | Encounter Summary ---
Author Organization [facility] Address [address] [place] [address] Care Team Providers Care Building Architectural Designer Name Role Phone Nury Alfredo MD Primary Care Provider Encounter Details Date Type Department Care Team (Late st Contact Info) Description 08/27/2000 Outpatient Historical [facility] Internal Medicine [address] [place] [address] Herminio Nixon Social History Tobacco Use Types Packs/Day Years Used Date Smoking Tobacco: Never Assessed Comments Unknown Sex and Gender Information Value Date Recorded Sex Assigned at Not on file Legal Sex Female 2:36 AM PATIENT SUPPORT PARTNER Gender Identity Not on file Sexual Orientation Not on file documented as of this encounter Plan of Treatment Not on file documented as of this encounter Visit Diagnoses Not on filedocumented in this encounter Care Teams Building Architectural Designer Relationship Specialty Start Date End Date Nury Alfredo MD [address] [facility] [address] [place] [phone] PCP - General 08/26/00 07/26/17 documented as of this encounter
--- OUTSIDE RECORDS SUMMARY | 2024-11-17 11:25 | XMS_ITS | Encounter Summary ---
Author Organization [facility] Address [address] [place] [address] Care Team Providers Care Information Security Associate Name Role Phone Nury Alfredo MD Primary Care Provider [phone] Encounter Details Date Type Department Care Team (Latest Contact Info) Description 01/26/2008 Outpatient Historical [facility] Mike Stephenson MD [address] [place] [phone] Other Screening Mammogram Social History Tobacco Use Types Packs/Day Years Used Date Smoking Tobacco: Never Assessed Comments No Sex and Gender Information Value Date Recorded Sex Assigned at Not on file Legal Sex Female 2:36 AM PARTS DEPARTMENT MANAGER Gender Identity Not on file Sexual Orientation Not on file documented as of this encounter Plan of Treatment Not on file documented as of this encounter Procedures Procedure Name Priority Date/Time Associated Diagnosis Comments MAMMO SCREEN BILAT W OR WO CAD Routine 01/26/2008 4:29 PM PARTS DEPARTMENT MANAGER documented in this encounter Results * MAMMO DIGITAL SCREEN BILAT (01/26/2008 4:29 PM PARTS DEPARTMENT MANAGER) Anatomical Region Laterality Modality Breast Bilateral Other 01/26/2008 4:29 PM PARTS DEPARTMENT MANAGER Narrative 01/27/2008 10:02 AM PARTS DEPARTMENT MANAGER [address] [address] Admit Date: 01/26/2008 KURTIS LUND Sex: F Admit Prov: MIKE BRODY Date: 1945 Primary Care Prov: NURY ALFREDO CMRN: [id number] Room: [facility] N: [id number] IMAGING SERVICES Ordering Prov: MIKE BRODY Accession Number: [id number] Interpretation BILATERAL FULL FIELD DIGITAL SCREENING MAMMOGRAM WITH CAD. Date: 01/26/2008 History: Routine Screening. Technique: Full field digital craniocaudal and mediolateral oblique projections of both breasts were obtained. Computer aided diagnosis was performed. Comparison: 12/2006, 12/2005, 11/2004 Breast Parenchymal Composition: Scattered fibroglandular densities. Findings: No suspicious mass, suspicious microcalcifications, or architectural distortion in either breast is identified. Since the prior study, there has been no significant interval change. The computer aided diagnosis detects no significant abnormality. Overall Assessment: BI-RADS category 1: Negative. Recommendation: Annual mammography is recommended. Assessment BIRADS: 1-Negative Recommendation: Normal interval follow-up Dictated by: MAHSA BARDALES Electronically signed by: MAHSA BARDALES 01/27/2008 10:01 Transcribed: 01/27/2008 09:45 DKT Procedure Note Mahsa Bardales - 01/27/[address] [address] Admit Date: 01/26/2008 KURTIS LUND Sex: F Admit Prov: MIKE BRODY Date: 1945 Primary Care Prov: NURY ALFREDO CMRN: [id number] Room: [facility] N: [id number] IMAGING SERVICES Ordering Prov: MIKE BRODY Interpretation BILATERAL FULL FIELD DIGITAL SCREENING MAMMOGRAM WITH CAD. Date: 01/26/2008 History: Routine Screening. Technique: Full field digital craniocaudal and mediolateral oblique projections of both breasts were obtained. Computer aided diagnosiswas performed. Comparison: 12/2006, 12/2005, 11/2004 Breast Parenchymal Composition: Scattered fibroglandular densities. Findings: No suspicious mass, suspicious microcalcifications, or architectural distortion in either breast is identified. Since theprior study, there has been no significant interval change. The computeraided diagnosis detects no significant abnormality. Overall Assessment: BI-RADS category 1: Negative. Recommendation: Annual mammography is recommended. Assessment BIRADS: 1-Negative Recommendation: Normal interval follow-up Dictated by: MAHSA BARDALES Electronically signed by: MAHSA BARDALES 01/27/2008 10:01 Transcribed: 01/27/2008 09:45 DKT us Mike Brody MD MAMMO ORDERABLES Final Resul t documented in this encounter Visit Diagnoses Diagnosis Other screening mammogram documented in this encounter Care Teams Information Security Associate Relationship Specialty Start Date End Date Nury Alfredo MD [address] [facility] [address] [place] [phone] PCP - General 08/26/00 07/26/17 documented as of this encounter
--- OUTSIDE RECORDS SUMMARY | 2024-11-17 11:25 | XMS_ITS | Encounter Summary ---
Author Organization [facility] Address [address] [place] [address] Care Team Providers Care Card Game Operator Name Role Phone Nury Alfredo MD Primary Care Provider [phone] Encounter Details Date Type Department Care Team (Late st Contact Info) Description 10/19/2001 Outpatient Historical [facility] STEWARD/STEWARDESS SECOND CLASS - Medical [facility] [address] [facility] [address] [address] Peterson Sinha MD [address] [place], [place] [id number] Social History Tobacco Use Types Packs/Day Years Used Date Smoking Tobacco: Never Assessed Comments Unknown Sex and Gender Information Value Date Recorded Sex Assigned at Not on file Legal Sex Female 2:36 AM PLASTICS TOOLING ENGINEER Gender Identity Not on file Sexual Orientation Not on file documented as of this encounter Plan of Treatment Not on file documented as of this encounter Visit Diagnoses Not on filedocumented in this encounter Care Teams Card Game Operator Relationship Specialty Start Date End Date Nury Alfredo MD [address] [facility] [address] [place] [phone] PCP - General 08/26/00 07/26/17 documented as of this encounter
--- OUTSIDE RECORDS SUMMARY | 2024-11-17 11:25 | XMS_ITS | Encounter Summary ---
Author Organization [employer] Address [address] [place] [address] Care Team Providers Care Beauty Director Name Role Phone Nury Alfredo MD Primary Care Provider [phone] Encounter Details Date Type Department Care Team (Late st Contact Info) Description 06/28/2007 Outpatient Historical [facility] [address] [place] [address] Darlene Miramontes Social History Tobacco Use Types Packs/Day Years Used Date Smoking Tobacco: Never Assessed Comments Unknown Sex and Gender Information Value Date Recorded Sex Assigned at Not on file Legal Sex Female 2:36 AM FLIGHT TEST SUPERVISOR Gender Identity Not on file Sexual Orientation Not on file documented as of this encounter Plan of Treatment Not on file documented as of this encounter Visit Diagnoses Not on filedocumented in this encounter Care Teams Beauty Director Relationship Specialty Start Date End Date Nury Alfredo MD [address] [place] [address] PCP - General 08/26/00 07/26/17 documented as of this encounter
--- OUTSIDE RECORDS SUMMARY | 2024-11-17 11:25 | XMS_ITS | Encounter Summary ---
Author Organization [facility] Address [address] [place] [address] Care Team Providers Care Cigar Inspector Name Role Phone Nury Alfredo MD Primary Care Provider Encounter Details Date Type Department Care Team (Late st Contact Info) Description 01/20/2001 Outpatient Historical [facility] COTTON BUYER - Medical [facility] [address] [facility] [address] [address] Peterson Sinha MD [address] [place], [place] [id number] Social History Tobacco Use Types Packs/Day Years Used Date Smoking Tobacco: Never Assessed Comments Unknown Sex and Gender Information Value Date Recorded Sex Assigned at Not on file Legal Sex Female 2:36 AM HEALTH SERVICES MANAGER Gender Identity Not on file Sexual Orientation Not on file documented as of this encounter Plan of Treatment Not on file documented as of this encounter Visit Diagnoses Not on filedocumented in this encounter Care Teams Cigar Inspector Relationship Specialty Start Date End Date Nury Alfredo MD [address] [facility] [address] [place] [address] PCP - General 08/26/00 07/26/17 documented as of this encounter
--- OUTSIDE RECORDS SUMMARY | 2024-11-17 11:25 | XMS_ITS | Encounter Summary ---
Author Organization [facility] Address [address] [place] [address] Care Team Providers Care Animal Hospital Clerk Name Role Phone Nury Alfredo MD Primary Care Provider [phone] Encounter Details Date Type Department Care Team (Late st Contact Info) Description 06/14/2001 Outpatient Historical [facility] Internal Medicine [address] [place] [address] Nury Alfredo MD [address] [place] [address] Social History Tobacco Use Types Packs/Day Years Used Date Smoking Tobacco: Never Assessed Comments Unknown Sex and Gender Information Value Date Recorded Sex Assigned at Not on file Legal Sex Female 2:36 AM BOX STRAPPER Gender Identity Not on file Sexual Orientation Not on file documented as of this encounter Plan of Treatment Not on file documented as of this encounter Visit Diagnoses Not on filedocumented in this encounter Care Teams Animal Hospital Clerk Relationship Specialty Start Date End Date Nury Alfredo MD [address] [place] [address] PCP - General 08/26/00 07/26/17 documented as of this encounter
--- OUTSIDE RECORDS SUMMARY | 2024-11-17 11:25 | XMS_ITS | Encounter Summary ---
Author Organization [facility] Address [address] [place] [address] Care Team Providers Care Mine Analyst Name Role Phone Nury Alfredo MD Primary Care Provider [phone] Encounter Details Date Type Department Care Team (Late st Contact Info) Description 07/08/2005 Outpatient Historical [facility] Internal Medicine [facility] and [address] [place] [address] [place] [address] [facility] [address] [place] [address] Social History Tobacco Use Types Packs/Day Years Used Date Smoking Tobacco: Never Assessed Comments Unknown Sex and Gender Information Value Date Recorded Sex Assigned at Not on file Legal Sex Female 2:36 AM AMMONIUM SULFATE OPERATOR Gender Identity Not on file Sexual Orientation Not on file documented as of this encounter Plan of Treatment Not on file documented as of this encounter Visit Diagnoses Not on filedocumented in this encounter Care Teams Mine Analyst Relationship Specialty Start Date End Date Nury Alfredo MD [address] [facility] [address] [place] [address] PCP - General 08/26/00 07/26/17 documented as of this encounter
--- OUTSIDE RECORDS SUMMARY | 2024-11-17 11:25 | XMS_ITS | Encounter Summary ---
Author Organization [facility] Address [address] [place] [address] Care Team Providers Care Distribution Systems Superintendent Name Role Phone Nury Alfredo MD Primary Care Provider [phone] Encounter Details Date Type Department Care Team (Late st Contact Info) Description 08/11/2002 Outpatient Historical [facility] Internal Medicine [facility] and [address] [place] [address] [place] [address] [facility] [address] [place] [address] Social History Tobacco Use Types Packs/Day Years Used Date Smoking Tobacco: Never Assessed Comments Unknown Sex and Gender Information Value Date Recorded Sex Assigned at Not on file Legal Sex Female 2:36 AM OUTSIDE OPERATOR Gender Identity Not on file Sexual Orientation Not on file documented as of this encounter Plan of Treatment Not on file documented as of this encounter Visit Diagnoses Not on filedocumented in this encounter Care Teams Distribution Systems Superintendent Relationship Specialty Start Date End Date Nury Alfredo MD [address] [facility] [address] [place] [address] PCP - General 08/26/00 07/26/17 documented as of this encounter
--- OUTSIDE RECORDS SUMMARY | 2024-11-17 11:25 | XMS_ITS | Encounter Summary ---
Author Organization [employer] Address [address] [place] [address] Care Team Providers Care Parking Officer Name Role Phone Nury Alfredo MD Primary Care Provider [phone] Encounter Details Date Type Department Care Team (Late st Contact Info) Description 04/09/2008 Outpatient Historical [facility] [address] Nury Alfredo MD [address] [place] [address] Lumbago Social History Tobacco Use Types Packs/Day Years Used Date Smoking Tobacco: Never Alcohol Use Standard Drinks/Week Comments Not Asked 0 (1 standard drink = 0.6 oz pur e alcohol) Comments No Sex and Gender Information Value Date Recorded Sex Assigned at Not on file Legal Sex Female 2:36 AM HOT MAN Gender Identity Not on file Sexual Orientation Not on file documented as of this encounter Plan of Treatment Not on file documented as of this encounter Visit Diagnoses Diagnosis Lumbago documented in this encounter Care Teams Parking Officer Relationship Specialty Start Date End Date Nury Alfredo MD [address] [place] [address] PCP - General 08/26/00 07/26/17 documented as of this encounter
--- OUTSIDE RECORDS SUMMARY | 2024-11-17 11:25 | XMS_ITS | Encounter Summary ---
Author Organization [facility] Address [address] [place] [address] Care Team Providers Care Category Manager Name Role Phone Nury Alfredo MD Primary Care Provider [phone] Encounter Details Date Type Department Care Team (Late st Contact Info) Description 07/23/1999 Outpatient Historical [facility] Internal Medicine [address] [place] [address] Nury Alfredo MD [address] [place] [address] Social History Tobacco Use Types Packs/Day Years Used Date Smoking Tobacco: Never Assessed Comments Unknown Sex and Gender Information Value Date Recorded Sex Assigned at Not on file 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
--- OUTSIDE RECORDS SUMMARY | 2024-11-17 11:25 | XMS_ITS | Encounter Summary ---
Author Organization [facility] Address [address] [place] [address] Care Team Providers Care Smoking Pipe Repairer Name Role Phone Nury Alfredo MD Primary Care Provider [phone] Encounter Details Date Type Department Care Team (Late st Contact Info) Description 11/16/2002 Outpatient Historical [facility] OFFLINE CUTTER - Medical [facility] [address] [facility] [address] [address] Peterson Sinha MD [address] [place], [place] [id number] Social History Tobacco Use Types Packs/Day Years Used Date Smoking Tobacco: Never Assessed Comments Unknown Sex and Gender Information Value Date Recorded Sex Assigned at Not on file 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
--- OUTSIDE RECORDS SUMMARY | 2024-11-17 11:25 | XMS_ITS | Encounter Summary ---
Author Organization [facility] Address [address] [place] [address] Care Team Providers Care Comfort Station Supervisor Name Role Phone Nury Alfredo MD Primary Care Provider [phone] Encounter Details Date Type Department Care Team (Late st Contact Info) Description 03/04/2006 Outpatient Historical [facility] Internal Medicine [address] [place] [address] Nury Alfredo MD [address] [place] [address] Social History Tobacco Use Types Packs/Day Years Used Date Smoking Tobacco: Never Assessed Comments Unknown Sex and Gender Information Value Date Recorded Sex Assigned at Not on file Legal Sex Female 2:36 AM LEASING COORDINATOR Gender Identity Not on file Sexual Orientation Not on file documented as of this encounter Plan of Treatment Not on file documented as of this encounter Visit Diagnoses Not on filedocumented in this encounter Care Teams Comfort Station Supervisor Relationship Specialty Start Date End Date Nury Alfredo MD [address] [place] [address] PCP - General 08/26/00 07/26/17 documented as of this encounter
--- OUTSIDE RECORDS SUMMARY | 2024-11-17 11:25 | XMS_ITS | Encounter Summary ---
Author Organization [employer] Address [address] [place] [address] Care Team Providers Care Rice Farmworker Name Role Phone Nury Alfredo MD Primary Care Provider [phone] Encounter Details Date Type Department Care Team (Latest Contact Info) Description 08/26/2000 Outpatient Historical [facility] Peterson Aviles MD [address] [place] [address] Other screening mammogram (Primary Dx) Social History Tobacco Use Types Packs/Day Years Used Date Smoking Tobacco: Never Assessed Comments Unknown Sex and Gender Information Value Date Recorded Sex Assigned at Not on file Legal Sex Female 2:36 AM CARE ASSOCIATE Gender Identity Not on file Sexual Orientation Not on file documented as of this encounter Plan of Treatment Not on file documented as of this encounter Visit Diagnoses Diagnosis Other screening mammogram- Primary documented in this encounter Care Teams Rice Farmworker Relationship Specialty Start Date End Date Nury Alfredo MD [address] [facility] [facility] [address] [place] [address] PCP - General 08/26/00 07/26/17 documented as of this encounter
--- OUTSIDE RECORDS SUMMARY | 2024-11-17 11:25 | XMS_ITS | Encounter Summary ---
Author Organization [facility] Address [address] [place] [address] Care Team Providers Care Hotel General Manager Name Role Phone Nury Alfredo MD Primary Care Provider [phone] Encounter Details Date Type Department Care Team (Late st Contact Info) Description 01/12/2001 Outpatient Historical [facility] RAW SILK GRADER - Medical [facility] [address] [facility] [address] [address] Peterson Sinha MD [address] [place], [place] [phone] Social History Tobacco Use Types Packs/Day Years Used Date Smoking Tobacco: Never Assessed Comments Unknown Sex and Gender Information Value Date Recorded Sex Assigned at Not on file Legal Sex Female 2:36 AM CONGRESSIONAL DISTRICT AIDE Gender Identity Not on file Sexual Orientation Not on file documented as of this encounter Plan of Treatment Not on file documented as of this encounter Visit Diagnoses Not on filedocumented in this encounter Care Teams Hotel General Manager Relationship Specialty Start Date End Date Nury Alfredo MD [address] [facility] [address] [place] [address] PCP - General 08/26/00 07/26/17 documented as of this encounter
--- OUTSIDE RECORDS SUMMARY | 2024-11-17 11:25 | XMS_ITS | Encounter Summary ---
Author Organization [facility] Address [address] [place] [address] Care Team Providers Care Yard Coupler Name Role Phone Nury Alfredo MD Primary Care Provider [phone] Encounter Details Date Type Department Care Team (Late st Contact Info) Description 10/21/2000 Outpatient Historical [facility] JOINTER MACHINE OPERATOR - Medical 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
--- OUTSIDE RECORDS SUMMARY | 2024-11-17 11:25 | XMS_ITS | Encounter Summary ---
Author Organization [facility] Address [address] [place] [address] Care Team Providers Care Patrol Conductor Name Role Phone Nury Alfredo MD Primary Care Provider [phone] Encounter Details Date Type Department Care Team (Late st Contact Info) Description 11/17/2001 Outpatient Historical [facility] YARN EXAMINER SKEINS - Medical [facility] [address] [facility] [address] [address] Shorty Parra MD [address] [facility] [address] [address] Social History Tobacco Use Types Packs/Day Years Used Date Smoking Tobacco: Never Assessed Comments Unknown Sex and Gender Information Value Date Recorded Sex Assigned at Not on file Legal Sex Female 2:36 AM SENIOR STRUCTURAL ENGINEER Gender Identity Not on file Sexual Orientation Not on file documented as of this encounter Plan of Treatment Not on file documented as of this encounter Visit Diagnoses Not on filedocumented in this encounter Care Teams Patrol Conductor Relationship Specialty Start Date End Date Nury Alfredo MD [address] [facility] [address] [place] [address] PCP - General 08/26/00 07/26/17 documented as of this encounter
--- OUTSIDE RECORDS SUMMARY | 2024-11-17 11:25 | XMS_ITS | Encounter Summary ---
Author Organization [facility] Address [address] [place] [address] Care Team Providers Care Processing Operator Name Role Phone Nury Alfredo MD Primary Care Provider [phone] Encounter Details Date Type Department Care Team (Late st Contact Info) Description 05/25/2005 Outpatient Historical [facility] Internal Medicine [address] [place] [address] Nury Alfredo MD [address] [place] [address] Social History Tobacco Use Types Packs/Day Years Used Date Smoking Tobacco: Never Assessed Comments Unknown Sex and Gender Information Value Date Recorded Sex Assigned at Not on file 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
--- OUTSIDE RECORDS SUMMARY | 2024-11-17 11:25 | XMS_ITS | Encounter Summary ---
Author Organization [facility] Address [address] [place] [address] Care Team Providers Care Vba Programmer Name Role Phone Nury Alfredo MD Primary Care Provider [phone] Encounter Details Date Type Department Care Team (Latest Contact Info) Description 10/08/2001 Outpatient Historical [facility] Peterson Aviles MD [address] [place] [address] SCREENING MAMM-MAILG NEOPL-OTHER (Primary Dx) Social History Tobacco Use Types Packs/Day Years Used Date Smoking Tobacco: Never Assessed Comments Unknown Sex and Gender Information Value Date Recorded Sex Assigned at Not on file Legal Sex Female 2:36 AM SOLUTIONS MARKET CONSULTANT Gender Identity Not on file Sexual Orientation Not on file documented as of this encounter Plan of Treatment Not on file documented as of this encounter Visit Diagnoses Diagnosis Other screening mammogram- Primary documented in this encounter Care Teams Vba Programmer Relationship Specialty Start Date End Date Nury Alfredo MD [address] [facility] [address] [place] [address] PCP - General 08/26/00 07/26/17 documented as of this encounter
--- OUTSIDE RECORDS SUMMARY | 2024-11-17 11:25 | XMS_ITS | Encounter Summary ---
Author Organization [facility] Address [address] [place] [address] Care Team Providers Care City Director Name Role Phone Nury Alfredo MD Primary Care Provider [phone] Encounter Details Date Type Department Care Team (Late st Contact Info) Description 11/26/2004 Outpatient Historical [facility] MIDDLE SCHOOL GUIDANCE COUNSELOR - Medical [facility] [address] [facility] [address] [place] [address] Mike Steen MD [address] [place] [address] Social History Tobacco Use Types Packs/Day Years Used Date Smoking Tobacco: Never Assessed Comments Unknown Sex and Gender Information Value Date Recorded Sex Assigned at Not on file Legal Sex Female 2:36 AM PLANS EXAMINER Gender Identity Not on file Sexual Orientation Not on file documented as of this encounter Plan of Treatment Not on file documented as of this encounter Visit Diagnoses Not on filedocumented in this encounter Care Teams City Director Relationship Specialty Start Date End Date Nury Alfredo MD [address] [facility] [address] [place] [address] PCP - General 08/26/00 07/26/17 documented as of this encounter
--- OUTSIDE RECORDS SUMMARY | 2024-11-17 11:25 | XMS_ITS | Encounter Summary ---
Author Organization [facility] Address [address] [place] [address] Care Team Providers Care Farmworker Name Role Phone Nury Alfredo MD Primary Care Provider [phone] Encounter Details Date Type Department Care Team (Late st Contact Info) Description 10/28/1998 Outpatient Historical [facility] RESET MERCHANDISER - Medical [facility] [address] [facility] [address] [facility] [address] [address] Eber Rangel Social History Tobacco Use Types Packs/Day Years Used Date Smoking Tobacco: Never Assessed Comments Unknown Sex and Gender Information Value Date Recorded Sex Assigned at Not on file Legal Sex Female 2:36 AM CUSTODIAL FOREMAN Gender Identity Not on file Sexual Orientation Not on file documented as of this encounter Plan of Treatment Not on file documented as of this encounter Visit Diagnoses Not on filedocumented in this encounter Care Teams Farmworker Relationship Specialty Start Date End Date Nury Alfredo MD [address] [facility] [address] [place] [address] PCP - General 08/26/00 07/26/17 documented as of this encounter
--- OUTSIDE RECORDS SUMMARY | 2024-11-17 11:25 | XMS_ITS | Encounter Summary ---
Author Organization [facility] Address [address] [place] [address] Care Team Providers Care Bone Worker Name Role Phone Nury Alfredo MD Primary Care Provider [phone] Encounter Details Date Type Department Care Team (Late st Contact Info) Description 11/01/2002 Outpatient Historical [facility] PLASTICS NURSE - Medical [facility] [address] [facility] [address] [address] Peterson Sinha MD [address] [place], [place] [id number] Social History Tobacco Use Types Packs/Day Years Used Date Smoking Tobacco: Never Assessed Comments Unknown Sex and Gender Information Value Date Recorded Sex Assigned at Not on file Legal Sex Female 2:36 AM PEANUT PICKER Gender Identity Not on file Sexual Orientation Not on file documented as of this encounter Plan of Treatment Not on file documented as of this encounter Visit Diagnoses Not on filedocumented in this encounter Care Teams Bone Worker Relationship Specialty Start Date End Date Nury Alfredo MD [address] [facility] [address] [place] [address] PCP - General 08/26/00 07/26/17 documented as of this encounter
--- OUTSIDE RECORDS SUMMARY | 2024-11-17 11:25 | XMS_ITS | Encounter Summary ---
Author Organization [employer] Address [address] [place] [address] Care Team Providers Care Chip Mixing Machine Operator Name Role Phone Nury Alfredo MD Primary Care Provider [phone] Encounter Details Date Type Department Care Team (Latest Contact Info) Description 07/24/2007 Outpatient [facility] Center for [employer] [facility] [address] [place] [facility] [place] [address] Nury Alfredo MD [address] [place] [address] Neck Sprain and Strain Social History Tobacco Use Types Packs/Day Years Used Date Smoking Tobacco: Never Assessed Comments Unknown Sex and Gender Information Value Date Recorded Sex Assigned at Not on file Legal Sex Female 2:36 AM LOAN UNDERWRITER Gender Identity Not on file Sexual Orientation Not on file documented as of this encounter Plan of Treatment Not on file documented as of this encounter Visit Diagnoses Diagnosis Sprain of neck documented in this encounter Care Teams Chip Mixing Machine Operator Relationship Specialty Start Date End Date Nury Alfredo MD [address] [place] [address] PCP - General 08/26/00 07/26/17 documented as of this encounter
--- OUTSIDE RECORDS SUMMARY | 2024-11-17 11:25 | XMS_ITS | Encounter Summary ---
Author Organization [facility] Address [address] [place] [address] Care Team Providers Care Event Specialist Product Demonstrator Name Role Phone Nury Alfredo MD Primary Care Provider [phone] Encounter Details Date Type Department Care Team (Late st Contact Info) Description 07/03/2005 Outpatient Historical [facility] Internal Medicine [address] [place] [address] Nury Alfredo MD [address] [place] [address] Social History Tobacco Use Types Packs/Day Years Used Date Smoking Tobacco: Never Assessed Comments Unknown Sex and Gender Information Value Date Recorded Sex Assigned at Not on file Legal Sex Female 2:36 AM SENIOR CLINICAL SAS PROGRAMMER Gender Identity Not on file Sexual Orientation Not on file documented as of this encounter Plan of Treatment Not on file documented as of this encounter Visit Diagnoses Not on filedocumented in this encounter Care Teams Event Specialist Product Demonstrator Relationship Specialty Start Date End Date Nury Alfredo MD [address] [place] [address] PCP - General 08/26/00 07/26/17 documented as of this encounter
--- OUTSIDE RECORDS SUMMARY | 2024-11-17 11:25 | XMS_ITS | Encounter Summary ---
Author Organization [facility] Address [address] [place] [address] Care Team Providers Care Credit Portfolio Advisor Name Role Phone Nury Alfredo MD Primary Care Provider [phone] Encounter Details Date Type Department Care Team (Late st Contact Info) Description 08/16/1999 Outpatient Historical [facility] Internal Medicine [address] [place] [address] Herminio Nixon Social History Tobacco Use Types Packs/Day Years Used Date Smoking Tobacco: Never Assessed Comments Unknown Sex and Gender Information Value Date Recorded Sex Assigned at Not on file Legal Sex Female 2:36 AM POSTAL SORTING OFFICER Gender Identity Not on file Sexual Orientation Not on file documented as of this encounter Plan of Treatment Not on file documented as of this encounter Visit Diagnoses Not on filedocumented in this encounter Care Teams Credit Portfolio Advisor Relationship Specialty Start Date End Date Nury Alfredo MD [address] [facility] [phone] PCP - General 08/26/00 07/26/17 documented as of this encounter
--- OUTSIDE RECORDS SUMMARY | 2024-11-17 11:25 | XMS_ITS | Encounter Summary ---
Author Organization [facility] Address [address] [place] [address] Care Team Providers Care Epic Ambulatory Specialists Name Role Phone Nury Alfredo MD Primary Care Provider [phone] Encounter Details Date Type Department Care Team (Latest Contact Info) Description 01/07/2006 Outpatient Historical [facility] Steen, Mike Grewal MD [address] [address] Other Screening Mammogram (Primary Dx) Social History Tobacco Use Types Packs/Day Years Used Date Smoking Tobacco: Never Assessed Comments Unknown Sex and Gender Information Value Date Recorded Sex Assigned at Not on file Legal Sex Female 2:36 AM MANAGER WIND Gender Identity Not on file Sexual Orientation Not on file documented as of this encounter Plan of Treatment Not on file documented as of this encounter Visit Diagnoses Diagnosis Other screening mammogram- Primary documented in this encounter Care Teams Epic Ambulatory Specialists Relationship Specialty Start Date End Date Nury Alfredo MD [address] [facility] [address] [place] [address] PCP - General 08/26/00 07/26/17 documented as of this encounter
--- OUTSIDE RECORDS SUMMARY | 2024-11-17 11:25 | XMS_ITS | Encounter Summary ---
Author Organization [facility] Address [address] [place] [address] Care Team Providers Care Molecular Spectroscopist Name Role Phone Nury Alfredo MD Primary Care Provider [phone] Encounter Details Date Type Department Care Team (Late st Contact Info) Description 01/01/2004 Outpatient Historical [facility] MAIL ROOM CLERK - Medical [facility] [address] [facility] [address] [place] [address] Chad Ross MD [address] [place] [address] Social History Tobacco Use Types Packs/Day Years Used Date Smoking Tobacco: Never Assessed Comments Unknown Sex and Gender Information Value Date Recorded Sex Assigned at Not on file Legal Sex Female 2:36 AM CORPORATE STRATEGY ASSOCIATE Gender Identity Not on file Sexual Orientation Not on file documented as of this encounter Plan of Treatment Not on file documented as of this encounter Visit Diagnoses Not on filedocumented in this encounter Care Teams Molecular Spectroscopist Relationship Specialty Start Date End Date Nury Alfredo MD [address] [facility] [address] [place] [address] PCP - General 08/26/00 07/26/17 documented as of this encounter
--- OUTSIDE RECORDS SUMMARY | 2024-11-17 11:25 | XMS_ITS | Encounter Summary ---
Author Organization [facility] Address [address] [place] [address] Care Team Providers Care Garage Door Installer Name Role Phone Nury Alfredo MD Primary Care Provider [phone] Encounter Details Date Type Department Care Team (Late st Contact Info) Description 11/22/2002 Outpatient Historical [facility] RANCH RIDER - Medical [facility] [address] [facility] [address] [address] Peterson Sinha MD [address] [place], [place] [id number] Social History Tobacco Use Types Packs/Day Years Used Date Smoking Tobacco: Never Assessed Comments Unknown Sex and Gender Information Value Date Recorded Sex Assigned at Not on file Legal Sex Female 2:36 AM SUPERVISOR PARTIAL DENTURE 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
--- OUTSIDE RECORDS SUMMARY | 2024-11-17 11:25 | XMS_ITS | Encounter Summary ---
Author Organization [facility] Address [address] [place] [address] Care Team Providers Care Logistics Supply Officer Name Role Phone Nury Alfredo MD Primary Care Provider [phone] Encounter Details Date Type Department Care Team (Late st Contact Info) Description 08/02/2002 Outpatient Historical [facility] Internal Medicine [facility] and [address] [place] [address] [place] [address] [facility] [address] [place] [phone] Social History Tobacco Use Types Packs/Day Years Used Date Smoking Tobacco: Never Assessed Comments Unknown Sex and Gender Information Value Date Recorded Sex Assigned at Not on file Legal Sex Female 2:36 AM SENIOR STAFF SPECIALIZED EMPLOYMENT Gender Identity Not on file Sexual Orientation Not on file documented as of this encounter Plan of Treatment Not on file documented as of this encounter Visit Diagnoses Not on filedocumented in this encounter Care Teams Logistics Supply Officer Relationship Specialty Start Date End Date Nury Alfredo MD [address] [facility] [address] [place] [address] PCP - General 08/26/00 07/26/17 documented as of this encounter
--- OUTSIDE RECORDS SUMMARY | 2024-11-17 11:25 | XMS_ITS | Encounter Summary ---
Author Organization [email or web address] Address [address] [place] [address] Care Team Providers Care Product Inspection Coordinator Name Role Phone Nury Alfredo MD Primary Care Provider [phone] Encounter Details Date Type Department Care Team (Latest Contact Info) Description 11/07/2002 Outpatient Historical [facility] Peterson Aviles MD [address] [place] [address] UNSP ABNORMAL MAMMOGRAM (Primary Dx) Social History Tobacco Use Types Packs/Day Years Used Date Smoking Tobacco: Never Assessed Comments Unknown Sex and Gender Information Value Date Recorded Sex Assigned at Not on file Legal Sex Female 2:36 AM MAGISTRATE JUDGE Gender Identity Not on file Sexual Orientation Not on file documented as of this encounter Plan of Treatment Not on file documented as of this encounter Visit Diagnoses Diagnosis Abnormal mammogram, unspecified- Primary documented in this encounter Care Teams Product Inspection Coordinator Relationship Specialty Start Date End Date Nury Alfredo MD [address] [facility] [address] [place] [address] PCP - General 08/26/00 07/26/17 documented as of this encounter
--- OUTSIDE RECORDS SUMMARY | 2024-11-17 11:25 | XMS_ITS | Encounter Summary ---
Author Organization [facility] Address [address] [place] [address] Care Team Providers Care Certified Medical Transcriptionist Name Role Phone Nury Alfredo MD Primary Care Provider [phone] Encounter Details Date Type Department Care Team (Latest Contact Info) Description 06/22/2007 Outpatient [facility] [address] [place] [address] Nury Alfredo MD [address] [place] [address] Neck Sprain and Strain Social History Tobacco Use Types Packs/Day Years Used Date Smoking Tobacco: Never Assessed Comments Unknown Sex and Gender Information Value Date Recorded Sex Assigned at Not on file Legal Sex Female 2:36 AM NEWS COMMENTATOR Gender Identity Not on file Sexual Orientation Not on file documented as of this encounter Plan of Treatment Not on file documented as of this encounter Visit Diagnoses Diagnosis Sprain of neck documented in this encounter Care Teams Certified Medical Transcriptionist Relationship Specialty Start Date End Date Nury Alfredo MD [address] [place] [address] PCP - General 08/26/00 07/26/17 documented as of this encounter
--- OUTSIDE RECORDS SUMMARY | 2024-11-17 11:25 | XMS_ITS | Encounter Summary ---
Author Organization [facility] Address [address] [place] [address] Care Team Providers Care Senior Support Analyst Name Role Phone Nury Alfredo MD Primary Care Provider [phone] Encounter Details Date Type Department Care Team (Late st Contact Info) Description 11/07/2003 Outpatient Historical [facility] SPANISHER - Medical [facility] [address] [facility] [address] [address] Peterson Sinha MD [address] [place], [place] [id number] Social History Tobacco Use Types Packs/Day Years Used Date Smoking Tobacco: Never Assessed Comments Unknown Sex and Gender Information Value Date Recorded Sex Assigned at Not on file Legal Sex Female 2:36 AM 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
--- OUTSIDE RECORDS SUMMARY | 2024-11-17 11:25 | XMS_ITS | Encounter Summary ---
Author Organization [facility] Address [address] [place] [address] Care Team Providers Care Editor House Organ Name Role Phone Nury Alfredo MD Primary Care Provider [phone] Encounter Details Date Type Department Care Team (Late st Contact Info) Description 09/21/2000 Outpatient Historical [facility] Internal Medicine [address] [place] [address] Nury Alfredo MD [address] [place] [address] Social History Tobacco Use Types Packs/Day Years Used Date Smoking Tobacco: Never Assessed Comments Unknown Sex and Gender Information Value Date Recorded Sex Assigned at Not on file 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
--- OUTSIDE RECORDS SUMMARY | 2024-11-17 11:25 | XMS_ITS | Clinical Summary ---
Author Organization [facility] Address [address] [place] [address] Care Team Providers Care Set Up Mold Technician Name Role Phone Unavailable Primary Care Provider Unavailabl e Allergies Active Allergy Reactions Criticality Noted Date Comments Penicillins Rash,Other (See Comments) Low 8 . Medications Cholecalciferol , Vitamin D3, (VITAMIN D) 1,000 unit Oral Tab Take 1 Tab by mouth daily. 30 Tab 11 04/13/2011 Active aspirin (NORMA) 81 mg Oral Tab Take 1 Tab by mouth daily with breakfast. 30 Tab 3 04/04/2012 Active calcium carbonate (TUMS) 200 mg (500 mg) Oral Chew Take 1 Tab by mouth 3 times daily with meals. 90 Tab 11 04/04/2012 Active guaiFENesin (MUCINEX) 600 mg Extended Release Biphasic tablet Take 600 mg by mouth 2 times daily. Active pravastatin (PRAVACHOL) 40 mg tabletIndicatio ns:Hypercholest erolemia TAKE ONE TABLET BY MOUTH EVERY DAY IN THE EVENING. 90 Tablet 3 02/10/2016 Active PREMARIN 0.625 mg/gram vaginal cream 11 02/06/2016 Active hydrocortisone (HYTONE) 2.5 % Cream Apply to affected area 2 times daily. Active hydrocortisone (ANUSOL-HC, PROCTOZONE-HC) 2.5 % cream with perineal applicator Insert by rectum 2 times daily. Active valACYclovir (VALTREX) 500 mg tablet Take 1 tablet by mouth 2 times daily for 7 days. 30 Tablet 1 01/10/2018 Active Active Problems Patient Care Coordination No te Formatting of this note migh t be different from the original. 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 Hypercholesterolemia 01/10/2008 Neck pain 01/10/2008 Elevated glucose 01/10/2008 Immunizations Immunization Administration Dates Next Due (ADACEL/BOOSTRIX)(10 YR UP) TDAP VACCINE, 0.5ML, IM 05/07/2011 (PNEUMOVAX 23)(50 YRS UP) PN EUMOCOCCAL POLYSACCHARIDE (PPV23) 0.5 ML, IM 06/02/2012 (PREVNAR 13)(6 WKS UP) PNEUM OCOCCAL CONJUGATE (PCV13) 0.5 ML, IM 11/19/2014 Influenza Seasonal Unspecifi ed Formulation IM 01/20/2013,01/21/2012,01/20/2011 Influenza Vaccine Quad Split 3+ Yrs Im 6,11/19/2014 Family History Medical History Relation Name Comments Healthy Daughter Heart Disease Father Breast Cancer Other pat gm Healthy Son 2 Relation Name Status Comments Daughter Alive Father Mother Alive Other pat gm Son 2 Alive Social History Tobacco Use Types Packs/Day Years Used Date Smoking Tobacco: Never Smokeless Tobacco: Never Alcohol Use Standard Drinks/Week Comments No 0 (1 standard drink = 0.6 oz pur e alcohol) Comments No Sex and Gender Information Value Date Recorded Sex Assigned at Not on file Legal Sex Female 2:36 AM TRIAL JUDGE Gender Identity Not on file Sexual Orientation Not on file Occupation Industry Job Start Date Job End Date Not on file Not on file Not on file Not on file Last Filed Vital Signs Vital Sign Reading Time Taken Comments Blood Pressure 126/72 12/01/2016 9:43 AM CDT Pulse 74 02/24/2016 11:05 AM TRIAL JUDGE Temperature 36.7 C (98.1 F) 08/12/2015 3:35 PM CDT Respiratory Rate 16 07/30/2015 8:19 AM CDT Oxygen Saturation 97% 12/03/2015 10:19 AM CDT Inhaled Oxygen Concentration - - Weight 66.7 kg (147 lb) 12/01/2016 9:43 AM CDT Height 160 cm (5' 3) 12/01/2016 9:43 AM CDT Body Mass Index 26.04 12/01/2016 9:43 AM CDT Plan of Treatment Health Maintenance Due Date Last Done Comments ZOSTER VACCINE (1 of 2) 1997 OSTEOPOROSIS SCREENING 2012 BREAST CANCER SCREENING 05/27/2016 05/28/19 16, 05/11/2014, 04/29/2013, Additional history exists DTAP/TDAP/TD VACCINES (2 - T d or Tdap) 05/07/2021 05/07/2011 RSV VACCINE (60+ or ) (1 - 1-dose 75+ series) 2022 INFLUENZA VACCINE (#1) 2024 6, 11/19/2014, 01/20/2013, Additional history exists FIT/FOBT Q 1 year Discontinued 07/23/1999 PNEUMOCOCCAL VACCINE 50+ YEARS Completed 11/19/2014 , 06/02/2012 COLORECTAL SCREENING Discontinued 07/01/2015, 04/18/2011, 04/18/2010, Additional history exists Colorectal Cancer Screening Discontinued FIT-DNA Q 3 years Discontinued Flex Sig/CT Colonography Q 5 years Discontinued Procedures Procedure Name Priority Date/Time Associated Diagnosis Comments [facility] COLONOSCOPY DIAGNOSTIC Routine 07/01/2015 MAMMO SCREEN BILAT W OR WO CAD Routine 05/28/2015 Breast cancer screening from Last 3 Months or Most Recently Relevant to Health Maintenance Results * [facility] COLONOSCOPY DIAGNOSTIC (07/01/2015) us Abstract Provider [facility] EMERGENCY DEPARTMENT Hannah l Result [facility] * MAMMO DIGITAL SCREEN BILAT (05/28/2015) Anatomical Region Laterality Modality Breast Bilateral Other us Mike Steen MD MAMMO ORDERABLES Edited Resu lt - Final from Last 3 Months or Most Recently Relevant to Health Maintenance [place] [address] [id number] Advance Directives For more information, please contact: [phone] * Full Code (Latest Code Status on File) Date Activated Date Inactivated Comments 07/29/2015 8:31 AM 07/29/2015 1:50 PM * Full Code Date Activated Date Inactivated Comments 04/18/2010 8:15 AM 04/19/2010 2:31 AM
--- OUTSIDE RECORDS SUMMARY | 2024-11-17 11:25 | XMS_ITS | Encounter Summary ---
Author Organization [facility] Address [address] [place] [address] Care Team Providers Care Panel Cutter Name Role Phone Nury Alfredo MD Primary Care Provider [phone] Encounter Details Date Type Department Care Team (Late st Contact Info) Description 05/01/2005 Outpatient Historical [facility] Internal Medicine [address] [place] [address] Nury Alfredo MD [address] [place] [address] Social History Tobacco Use Types Packs/Day Years Used Date Smoking Tobacco: Never Assessed Comments Unknown Sex and Gender Information Value Date Recorded Sex Assigned at Not on file Legal Sex Female 2:36 AM HEALTH COACH Gender Identity Not on file Sexual Orientation Not on file documented as of this encounter Plan of Treatment Not on file documented as of this encounter Visit Diagnoses Not on filedocumented in this encounter Care Teams Panel Cutter Relationship Specialty Start Date End Date Nury Alfredo MD [address] [place] [address] PCP - General 08/26/00 07/26/17 documented as of this encounter
--- OUTSIDE RECORDS SUMMARY | 2024-11-17 11:25 | XMS_ITS | Encounter Summary ---
Author Organization [facility] Address [address] [place] [address] Care Team Providers Care Detention Deputy Name Role Phone Nury Alfredo MD Primary Care Provider [phone] Encounter Details Date Type Department Care Team (Late st Contact Info) Description 12/06/2003 Outpatient Historical [facility] HOSIERY MATER - Medical [facility] [address] [facility] [address] [address] Peterson Sinha MD [address] [place], [place] [address] Social History Tobacco Use Types Packs/Day Years Used Date Smoking Tobacco: Never Assessed Comments Unknown Sex and Gender Information Value Date Recorded Sex Assigned at Not on file 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
--- OUTSIDE RECORDS SUMMARY | 2024-11-17 11:25 | XMS_ITS | Encounter Summary ---
Author Organization [facility] Address [address] [place] [address] Care Team Providers Care Electrolysis Engineer Name Role Phone Nury Alfredo MD Primary Care Provider [phone] Encounter Details Date Type Department Care Team (Late st Contact Info) Description 05/02/2004 Outpatient Historical [facility] Internal Medicine [address] [place] [address] Nury Alfredo MD [address] [place] [address] Social History Tobacco Use Types Packs/Day Years Used Date Smoking Tobacco: Never Assessed Comments Unknown Sex and Gender Information Value Date Recorded Sex Assigned at Not on file Legal Sex Female 2:36 AM FAMILY LIFE COUNSELOR Gender Identity Not on file Sexual Orientation Not on file documented as of this encounter Plan of Treatment Not on file documented as of this encounter Visit Diagnoses Not on filedocumented in this encounter Care Teams Electrolysis Engineer Relationship Specialty Start Date End Date Nury Alfredo MD [address] [place] [address] PCP - General 08/26/00 07/26/17 documented as of this encounter
--- OUTSIDE RECORDS SUMMARY | 2024-11-17 11:25 | XMS_ITS | Encounter Summary ---
Author Organization [facility] Address [address] [place] [address] Care Team Providers Care Agent Licensing Clerk Name Role Phone Nury Alfredo MD Primary Care Provider Encounter Details Date Type Department Care Team (Late st Contact Info) Description 12/26/2004 Outpatient Historical [facility] Internal Medicine [facility] and [address] [place] [address] [place] [address] [facility] [address] [place] [address] Social History Tobacco Use Types Packs/Day Years Used Date Smoking Tobacco: Never Assessed Comments Unknown Sex and Gender Information Value Date Recorded Sex Assigned at Not on file Legal Sex Female 2:36 AM TAR KETTLE RUNNER Gender Identity Not on file Sexual Orientation Not on file documented as of this encounter Plan of Treatment Not on file documented as of this encounter Visit Diagnoses Not on filedocumented in this encounter Care Teams Agent Licensing Clerk Relationship Specialty Start Date End Date Nury Alfredo MD [address] [facility] [address] [place] [address] PCP - General 08/26/00 07/26/17 documented as of this encounter
--- OUTSIDE RECORDS SUMMARY | 2024-11-17 11:25 | XMS_ITS | Encounter Summary ---
Author Organization [facility] Address [address] [place] [address] Care Team Providers Care Lock Technician Name Role Phone Nury Alfredo MD Primary Care Provider [phone] Encounter Details Date Type Department Care Team (Late st Contact Info) Description 11/13/1998 Outpatient Historical [facility] RESERVATION SALES AGENT - Medical [facility] [address] [facility] [address] [facility] [address] [address] Eber Rangel Social History Tobacco Use Types Packs/Day Years Used Date Smoking Tobacco: Never Assessed Comments Unknown Sex and Gender Information Value Date Recorded Sex Assigned at Not on file 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
--- OUTSIDE RECORDS SUMMARY | 2024-11-17 11:25 | XMS_ITS | Encounter Summary ---
Author Organization [facility] Address [address] [place] [address] Care Team Providers Care Numerical Control Nesting Operator Name Role Phone Nury Alfredo MD Primary Care Provider [phone] Encounter Details Date Type Department Care Team (Latest Contact Info) Description 10/28/2002 Outpatient Historical [facility] Peterson Aviles MD [address] [place] [address] SCREENING MAMM-MAILG NEOPL-OTHER (Primary Dx) Social History Tobacco Use Types Packs/Day Years Used Date Smoking Tobacco: Never Assessed Comments Unknown Sex and Gender Information Value Date Recorded Sex Assigned at Not on file Legal Sex Female 2:36 AM MEDICAID SERVICE COORDINATOR Gender Identity Not on file Sexual Orientation Not on file documented as of this encounter Plan of Treatment Not on file documented as of this encounter Visit Diagnoses Diagnosis Other screening mammogram- Primary documented in this encounter Care Teams Numerical Control Nesting Operator Relationship Specialty Start Date End Date Nury Alfredo MD [address] [facility] [address] [place] [id number] PCP - General 08/26/00 07/26/17 documented as of this encounter
--- OUTSIDE RECORDS SUMMARY | 2024-11-17 11:25 | XMS_ITS | Encounter Summary ---
Author Organization [facility] Address [address] [place] [address] Care Team Providers Care Arborist Climber Name Role Phone Nury Alfredo MD Primary Care Provider [phone] Encounter Details Date Type Department Care Team (Late st Contact Info) Description 10/06/2000 Outpatient Historical [facility] PURE CULTURE OPERATOR - Medical [facility] [address] [facility] [address] [address] Peterson Sinha MD [address] [place], [place] [id number] Social History Tobacco Use Types Packs/Day Years Used Date Smoking Tobacco: Never Assessed Comments Unknown Sex and Gender Information Value Date Recorded Sex Assigned at Not on file Legal Sex Female 2:36 AM ELEVATOR REPAIR MECHANIC Gender Identity Not on file Sexual Orientation Not on file documented as of this encounter Plan of Treatment Not on file documented as of this encounter Visit Diagnoses Not on filedocumented in this encounter Care Teams Arborist Climber Relationship Specialty Start Date End Date Nury Alfredo MD [address] [facility] [address] [place] [phone] PCP - General 08/26/00 07/26/17 documented as of this encounter
--- OUTSIDE RECORDS SUMMARY | 2024-11-17 11:25 | XMS_ITS | Encounter Summary ---
Author Organization [facility] Address [address] [place] [address] Care Team Providers Care Wholesaler Name Role Phone Nury Alfredo MD Primary Care Provider [phone] Encounter Details Date Type Department Care Team (Late st Contact Info) Description 11/04/1998 Outpatient Historical [facility] [place] [address] [place] [address] Nury Alfredo MD [address] [facility] [address] [place] [address] Social History Tobacco Use Types Packs/Day Years Used Date Smoking Tobacco: Never Assessed Comments Unknown Sex and Gender Information Value Date Recorded Sex Assigned at Not on file Legal Sex Female 2:36 AM DRUG PURCHASER Gender Identity Not on file Sexual Orientation Not on file documented as of this encounter Plan of Treatment Not on file documented as of this encounter Visit Diagnoses Not on filedocumented in this encounter Care Teams Wholesaler Relationship Specialty Start Date End Date Nury Alfredo MD [address] [facility] [address] [place] [address] PCP - General 08/26/00 07/26/17 documented as of this encounter
--- OUTSIDE RECORDS SUMMARY | 2024-11-17 11:25 | XMS_ITS | Encounter Summary ---
Author Organization [employer] [facility] Address [address] [place] [address] Care Team Providers Care Lokie Engineer Name Role Phone Nury Alfredo MD Primary Care Provider [phone] Encounter Details Date Type Department Care Team (Latest Contact Info) Description 07/23/1999 Outpatient Historical [facility] Eber Portillo Other screening mammogram (Primary Dx) Social History Tobacco Use Types Packs/Day Years Used Date Smoking Tobacco: Never Assessed Comments Unknown Sex and Gender Information Value Date Recorded Sex Assigned at Not on file Legal Sex Female 2:36 AM TECHNICAL SERVICES REP Gender Identity Not on file Sexual Orientation Not on file documented as of this encounter Plan of Treatment Not on file documented as of this encounter Visit Diagnoses Diagnosis Other screening mammogram- Primary documented in this encounter Care Teams Lokie Engineer Relationship Specialty Start Date End Date Nury Alfredo MD [address] [address] [address] [place] [address] PCP - General 08/26/00 07/26/17 documented as of this encounter
--- OUTSIDE RECORDS SUMMARY | 2024-11-17 11:25 | XMS_ITS | Encounter Summary ---
Author Organization [facility] Address [address] [place] [address] Care Team Providers Care Registered Dietetic Technician Name Role Phone Nury Alfredo MD Primary Care Provider [phone] Encounter Details Date Type Department Care Team (Late st Contact Info) Description 12/09/2005 Outpatient Historical [facility] CORK SLABS SAWYER - Medical [facility] [address] [facility] [address] [place] [address] Mike Steen MD [address] [place] [address] Social History Tobacco Use Types Packs/Day Years Used Date Smoking Tobacco: Never Assessed Comments Unknown Sex and Gender Information Value Date Recorded Sex Assigned at Not on file Legal Sex Female 2:36 AM UROLOGIST Gender Identity Not on file Sexual Orientation Not on file documented as of this encounter Plan of Treatment Not on file documented as of this encounter Visit Diagnoses Not on filedocumented in this encounter Care Teams Registered Dietetic Technician Relationship Specialty Start Date End Date Nury Alfredo MD [address] [facility] [address] [place] [address] PCP - General 08/26/00 07/26/17 documented as of this encounter
--- OUTSIDE RECORDS SUMMARY | 2024-11-17 11:25 | XMS_ITS | Encounter Summary ---
Author Organization [facility] Address [address] [place] [address] Care Team Providers Care Primary School Teacher Librarian Name Role Phone Nury Alfredo MD Primary Care Provider [phone] Encounter Details Date Type Department Care Team (Latest Contact Info) Description 11/17/2003 Outpatient Historical [facility] Peterson Aviles MD [address] [place] [address] SCREENING MAMM-MAILG NEOPL-OTHER (Primary Dx) Social History Tobacco Use Types Packs/Day Years Used Date Smoking Tobacco: Never Assessed Comments Unknown Sex and Gender Information Value Date Recorded Sex Assigned at Not on file Legal Sex Female 2:36 AM EP TECHNOLOGIST Gender Identity Not on file Sexual Orientation Not on file documented as of this encounter Plan of Treatment Not on file documented as of this encounter Visit Diagnoses Diagnosis Other screening mammogram- Primary documented in this encounter Care Teams Primary School Teacher Librarian Relationship Specialty Start Date End Date Nury Alfredo MD [address] [facility] [address] [place] [address] PCP - General 08/26/00 07/26/17 documented as of this encounter
--- OUTSIDE RECORDS SUMMARY | 2024-11-17 11:25 | XMS_ITS | Clinical Summary ---
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 Active hydrocortisone (PROCTOCORT) 10 % (80 mg) rectal foamIndications :Ulcerative Proctitis Insert 1 applicator into the rectum 2 (two) times a day. Active cetirizine 10 mg capsule Take by mouth. Acti ve gabapentin (NEURONTIN) 300 mg capsuleIndicati ons:Neuropathic Pain 1 tablet 2-3 times daily 30 capsule 3 8 Active Additional Information Patient not taking.Reported on 06/18/2021 predniSONE (DELTASONE) 5 mg tablet 2 Active hydrocortisone (ANUSOL-HC) 2.5 % rectal cream Insert into the rectum 2 (two) times a day Active levothyroxine (SYNTHROID) 50 mcg tablet 4 Active meloxicam (MOBIC) 7.5 mg tablet Take 1 tablet (7.5 mg total) by mouth 2 (two) times a day 4 Active Active Problems Problem Noted Date Diagnosed Date Raynaud's phenomenon without gangrene 06/25/2021 Assessment & Plan (06/25/2021 2:55 PM CDT): Patient's symptoms are consistent with Raynaud's phenomenon brought about by cold exposure. She has no evidence of underlying structural arterial occlusive disease. Recommended avoidance of cold exposure. His symptoms persist would recommend trial of calcium channel elisha. No further vascular surgical workup needed. 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 Continue pravastatin. Neck pain 01/10/2008 Immunizations Immunization Administration Dates Next Due Influenza, Quad, Adjuvantate d, Intramuscular 12/19/2019 Influenza, Quadrivalent, Hig h Dose, Preservative Free, Intrr 12/12/2020 Influenza, Quadrivalent, Rec ombinant, Egg Free, Preservative Free, Intramuscular 01/05/2019 Influenza, Quadrivalent, Spl it, Intramuscular 12/03/2015,11/19/2014 Influenza, Trivalent, High D ose, Split, Preservative Free, Intramuscular 01/28/2017,01/06/2017 Influenza, Trivalent, IM (MDV) 8,01/20/2013,01/21/2012,01/20 Pneumococcal Conjugate PCV 13 11/19/2014 Pneumococcal Polysaccharide PPV23 06/02/2012 Tdap 05/07/2011 Surgical History Surgery Date Site/Laterality Comments CYSTOCELE REPAIR 07/29/2015 Medical History Medical History Date Comments Heart murmur Hypothyroid HSV-2 (herpes simplex virus 2) infection Family History Medical History Relation Name Comments Heart disease Father Breast cancer Paternal Grandmother Relation Name Status Comments Father Paternal Grandmother Social History Tobacco Use Types Packs/Day Years Used Date Smoking Tobacco: Never Smokeless Tobacco: Never Alcohol Use Standard Drinks/Week Comments No 0 (1 standard drink = 0.6 oz pur e alcohol) Personal Safety Answer Date Recorded Getting School Help Needed Not on file 04/05 Comments No Sex and Gender Information Value Date Recorded Sex Assigned at Not on file 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 Gender Identity Not on file Sexual Orientation Not on file Obstetrics History Para Term AB IAB SAB Ectopic Multiple Livin g Live Births 3 3 3 3 3 Date Outcome GA Total Labor Labor/2nd/3rd Weight Sex Type Anes PTL Lindsey A1 A5 Name Clin Term Vag-S pont Living Term Vag-S pont Living Term Vag-S pont Living Last Filed Vital Signs Vital Sign Reading Time Taken Comments Blood Pressure 129/77 12/14/2023 12:13 PM CDT Pulse 71 12/14/2023 12:13 PM CDT Temperature 36.3 C (97.3 F) 12/14/2023 12:13 PM CDT Respiratory Rate 14 12/14/2023 12:13 PM CDT Oxygen Saturation 99% 12/14/2023 12:13 PM CDT Inhaled Oxygen Concentration - - Weight 63.5 kg (140 lb) 12/14/2023 12:13 PM CDT Height 160 cm (5' 3) 12/14/2023 12:13 PM CDT Body Mass Index 24.8 12/14/2023 12:13 PM CDT Plan of Treatment Health Maintenance Due Date Last Done Comments Depression Screening 1945 Fall Risk Assessment 1945 Hepatitis C Screening 1945 Osteoporosis Screening-Bone Density Scan 1945 Hepatitis B Screening 1965 Zoster Vaccine (1 of 2) 1997 Well Visit 65+ 2012 DTaP/Tdap/Td Vaccine (2 - Td or Tdap) 05/07/2021 05/07/2011 Covid-19 Vaccine (4 - 2023-2 5 season) 2023 01/07/2021, 05/23/2020, 04/25/2020 Influenza Vaccine (#1) 2024 , 12/19/2019, 01/05/2019, Additional history exists Pneumococcal vaccine 65+ Completed 11/19/2014, 05/20 Breast Cancer Screening-Mammogram Discontinued 05/28/2015, 05/28/2015, 05/11/2014, Additional history exists [facility] Care Teams Diesel Engine Pipe Fitter Relationship Specialty Start Date End Date Terrance Hurtado MD PCP - General Family Practice 12/14/23
--- OUTSIDE RECORDS SUMMARY | 2024-11-17 11:25 | XMS_ITS | Encounter Summary ---
Author Organization [facility] Address [address] [place] [address] Care Team Providers Care Powersaw Supervisor Name Role Phone Nury Alfredo MD Primary Care Provider [phone] Encounter Details Date Type Department Care Team (Latest Contact Info) Description 01/21/2008 Outpatient Historical [facility] Nury Cabello MD [address] [place] [address] Pure Hypercholesterolemia Social History Tobacco Use Types Packs/Day Years Used Date Smoking Tobacco: Never Assessed Comments No Sex and Gender Information Value Date Recorded Sex Assigned at Not on file Legal Sex Female 2:36 AM STEEL 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
[2024-11-17 12:20] LABS: Strep Group A RT-PCR NOT DETECTED (Negative)
[2024-11-17 12:31] LABS: Influenza A QL RT-PCR Negative (Negative); Influenza B QL RT-PCR Negative (Negative); RSV RNA, RT-PCR Negative (Negative); SARS-CoV-2 RNA PCR Negative (Negative)
== END 2024-11-17 11:20 | disposition home or self-care (01) ==
LOC: ANHLAB 11:20
PROVIDERS: PCP Family Medicine; Visit Provider Nurse Practitioner Family
DX: J02.9 Acute pharyngitis, unspecified (principal); Z20.822 Contact with and (suspected) exposure to COVID-19
CPT/HCPCS: 87637; 87651

== ENCOUNTER 2025-02-06 14:41 | Outpatient (CLI) | payer MEDICARE, SELFPAY ==
--- NOTE | ~2025-02-06 | XR_ITS ---
EXAMINATION: XR elbow RT min 3V, 02/06/2025 15:49 CENTER REP HISTORY: M25.521 - Pain in right elbow COMPARISON: No comparisons available. Findings: No acute fracture or malalignment. No significant degenerative changes. Soft tissues unremarkable. Impression: No acute fracture or malalignment. Reviewed, dictated and finalized at location P. ER REP Impression: No acute fracture or malalignment.
--- NOTE | ~2025-02-06 | MR_ITS ---
EXAMINATION: MR thoracic spine wo/w con DATE: 02/06/2025 15:34 INDICATION: 79-year-old female with a history of finding of soft tissue mass in the right paraspinal location at T11-T12 level on prior outside imaging. No mention of prior malignancy. TECHNIQUE: Magnetic resonance imaging (MRI) of the thoracic spine was performed including postcontrast study with 13 mL MultiHance intravenous contrast. Sagittal localizer T1-weighted FSE of the cervical spine was obtained. Thoracic spine sequences included sagittal T2-weighted FSE, sagittal T1-weighted FSE, sagittal T2-weighted FS FSE, and axial T2-weighted FSE. COMPARISON: Prior outside imaging reporting right paraspinal mass is not available for comparison. FINDINGS: No focal bone changes of the thoracic vertebral bodies are seen. No evidence of thoracic disc herniation or spinal stenosis or foraminal stenosis are seen. Well-circumscribed oval-shaped mass in the right paravertebral location is noted extending from lower T11 level to upper L1 level. The mass has heterogeneous T2 signal and heterogeneous postcontrast enhancement. The mass measures 5 x 2.3 x 5 cm in size. The mass is away from the right adrenal gland. No other enhancing lesions are seen on postcontrast study. IMPRESSION: 1. No focal bone changes of thoracic vertebrae. No significant disc lesions in the thoracic region. 2. Well-circumscribed, oval-shaped right paravertebral mass extending from T11 level up to L1 level with heterogeneous postcontrast enhancement as described above. Mass measures 5 x 2.3 x 5 cm in size. Differential diagnosis would include schwannoma of the paravertebral nerve root. Malignant neoplasm is not ruled out. The mass appears to be separate from adrenal gland. 3. Further evaluation of the right paravertebral soft tissue mass with PET CT scanning is suggested to evaluate for any possible malignancy. Surgical biopsy on imaging guided biopsy of the mass for conclusive diagnosis is recommended. Reviewed, dictated and finalized at location T. ER UTILITY WORKER IMPRESSION: 1. No focal bone changes of thoracic vertebrae. No significant disc lesions in the thoracic region. 2. Well-circumscribed, oval-shaped right paravertebral mass extending from T11 level up to L1 level with heterogeneous postcontrast enhancement as described a boaz. Mass measures 5 x 2.3 x 5 cm in size. Differential diagnosis would includ e schwannoma of the paravertebral nerve root. Malignant neoplasm is not ruled o ut. The mass appears to be separate from adrenal gland. 3. Further evaluation of the right paravertebral soft tissue mass with PET CT s kb is suggested to evaluate for any possible malignancy. Surgical biopsy o n imaging guided biopsy of the mass for conclusive diagnosis is recommended.
== END 2025-02-06 14:42 | disposition home or self-care (01) ==
LOC: MICIMG 14:43
PROVIDERS: PCP Family Medicine; Visit Provider Nurse Practitioner Family
DX: R22.2 Localized swelling, mass and lump, trunk (principal); M25.521 Pain in right elbow
CPT/HCPCS: 72157; 73080; A9577

== ENCOUNTER 2025-02-22 11:17 | Outpatient (CLI) | payer MEDICARE, SELFPAY ==
[2025-02-22 11:37] LABS: Hematocrit 45.9 % (37.0-47.0); Hemoglobin 14.9 g/dL (12.0-15.0); Immature Granulocyte Percent A 0.2 % (0-0.5); Lymphocytes Absolute Auto 1.15 K/mm3 (0.9-3.2); Mean Corpuscular HGB Conc 32.5 g/dl (32-36); Mean Corpuscular Hemoglobin 31.1 pg (26-34); Mean Corpuscular Volume 95.8 fl (80-100); Nucleated Red Blood Cells Absolute Auto 0.000 K/mm3 (0.0-0.012); Nucleated Red Blood Cells Perc 0.0 % (0.0-0.2); Platelet Count Result 277 k/mm3 (150-375); Red Blood Count 4.79 M/mm3 (4.2-5.4); White Blood Count 6.6 K/mm3 (4.5-10.0)
[2025-02-22 13:09] LABS: Alanine Aminotransferase 38 U/L (6-35); Albumin Level 4.7 g/dL (3.5-5.1); Alkaline Phosphatase 78 U/L (38-126); Anion Gap 5 mmol/L (4-12); Aspartate Amino Transferase 44 U/L (14-36); Bilirubin,Total 0.7 mg/dL (0.2-1.3); Blood Urea Nitrogen 23 mg/dL (7-17); Calcium 9.9 mg/dL (8.4-10.2); Carbon Dioxide 28 mmol/L (22-30); Chloride 104 mmol/L (98-107); Estimated Glomerular Filt Rate > 60; Glucose 97 mg/dL (65-110); Potassium 4.2 mmol/L (3.4-5.0); Sodium 137 mmol/L (137-145); Total Protein 7.9 g/dL (6.3-8.2)
== END 2025-02-22 11:18 | disposition home or self-care (01) ==
PROVIDERS: PCP Family Medicine; Visit Provider Internal Medicine Hematology & Oncology
DX: R22.2 Localized swelling, mass and lump, trunk (principal)
CPT/HCPCS: 36415; 80053; 85025